=== PATIENT | male | born 1970 | race Caucasian/White ===

== ENCOUNTER 2020-08-15 18:46 | Emergency (ER) | payer MEDICAID, SELFPAY ==
[2020-08-15 19:00] VITALS: BP 143/86; PULSE 71; RESP 18; TEMP 36.9; O2SAT 99; BMI 27.7
--- NOTE | 2020-08-15 19:03 | HMH.EDUTC ---
[facility] [place] Clinical Impression: Exposure to COVID-19 virus, Viral syndrome Disposition: Home, Self-Care Condition on Discharge: Good Instructions: DI for Viral Syndrome Additional Instructions: Drink plenty of fluids. Take tylenol for pain or fever. Follow up with your regular doctor. GO TO THE ER FOR ANY WORSENING SYMPTOMS Referrals: PCP,No [Primary Care Provider] - Time of Disposition: 19:33 Medical Decision Making - Medical Records Medical records reviewed: No: I reviewed the patient's medical records. - Andrea Inquiry Pt receiving controlled substance: No Vital Signs: 08/15/20 19:00 08/15/20 19:35 Temperature 98.4 F 98.4 F Temperature Source Oral Pulse Rate 71 Pulse Rate [Right Brachial] 71 Respiratory Rate 18 18 Blood Pressure 143/86 H Blood Pressure [Right Arm] 143/86 H Blood Pressure Mean [Right Arm] 105 Blood Pressure Source [Right Arm] Automatic Cuff 02 Sat by Pulse Oximetry 99 Oxygen Delivery Method Room Air [facility] [place] H[place] - General Stated complaint: Wants COVID test,SOB,Diaarrhea,Abd Pain Time Seen by Provider: 08/15/20 19:03 - History of Present Illness Provider Complaint: He states that when he was on his way in his work, the temp check showed that his temp was 100.5. He has felt bad for 2 days, with diarrhea and a dry cough. - Related Data Allergies Allergy/AdvReac Type Severity Reaction Status Date / Time amoxicillin Allergy Verified 08/15/20 19:13 azithromycin Allergy Verified 08/15/20 19:13 Penicillins Allergy Verified 08/15/20 19:13 [facility] History - Hepatitis A Screen Attestation statement:: This patient has been screened for Hepatitis A risk factors. I have reviewed the patient's past medical history: Yes ROS Obtained: Yes All systems reviewed & no additional complaints - Constitutional Constitutional: Reports system reviewed and no additional complaints, except as docu - Eyes Eyes: Reports system reviewed and no additional complaints, except as docu - ENT Ears, Nose, Mouth, and Throat: Reports system reviewed and no additional complaints, except as docu - Cardiovascular Cardiovascular: Reports system reviewed and no additional complaints, except as docu - Respiratory Respiratory: Yes system reviewed and no additional complaints, except as docu - Gastrointestinal Gastrointestingal: Reports: system reviewed and no additional complaints, except as docu Physical Exam - General General appearance: alert, in no apparent distress - Head Head exam: atraumatic, normocephalic, normal inspection - Eye Eye exam: Present: normal appearance, PERRL, EOMI - ENT ENT exam: Present: normal exam, normal oropharynx, mucous membranes moist, TM's normal bilaterally, normal external ear exam - Neck Neck exam: Present: normal inspection, full ROM, trachea midline. Absent: meningismus, lymphadenopathy - Chest Chest inspection: Present: normal inspection, symmetric chest wall rise. Absent: tenderness - Respiratory Respiratory exam: Present: normal lung sounds bilaterally. Absent: respiratory distress - Cardiovascular Cardiovascular exam: Present: regular rate, normal rhythm. Absent: JVD - Abdominal Exam Abdominal exam: Present: soft, normal bowel sounds. Absent: distention, tenderness, guarding - Extremities Exam Extremities exam: Present: normal inspection, full ROM, normal capillary refill. Absent: calf tenderness - Back Exam Back exam: Present: normal inspection. Absent: tenderness - Neurological Exam Neurological exam: Present: alert, oriented X3 - Psychiatric Psychiatric exam: Present: normal affect, normal mood - Skin Skin exam: Present: warm, dry, intact, normal color - Lymphatic Lymphatic Findings: no adenopathy
[2020-08-15 19:35] VITALS: BP 143/86; PULSE 71; RESP 18; TEMP 36.9; O2SAT 99
== END 2020-08-15 19:38 | disposition home or self-care (01) ==
PROVIDERS: Emergency Provider Nurse Practitioner Family
DX: Z20.828 Contact with and (suspected) exposure to other viral communicable diseases (principal); B34.9 Viral infection, unspecified
CPT/HCPCS: 99201; U0003

== ENCOUNTER 2020-09-04 18:15 | Emergency (ER) | payer MEDICAID, SELFPAY ==
[2020-09-04 19:05] VITALS: BP 142/84; PULSE 90; RESP 21; TEMP 36.4; O2SAT 98; BMI 27.7
--- NOTE | 2020-09-04 19:28 | HMH.EDUTC ---
[facility] [place] Disposition Clinical Impression: COVID-19 virus test result unknown Disposition: Home, Self-Care Condition on Discharge: Good Instructions: Preventing the Spread of Coronavirus Discharge Instructions Additional Instructions: isolate until test known to be negative Referrals: PCP,No [Primary Care Provider] - Forms: Work/School Release Time of Disposition: 19:32 Medical Decision Making - Andrea Inquiry Pt receiving controlled substance: No Vital Signs: 09/04/20 19:05 Temperature 97.6 F Temperature Source Oral Pulse Rate [Right Brachial] 90 Respiratory Rate 21 Blood Pressure [Right Arm] 142/84 H Blood Pressure Mean [Right Arm] 103 Blood Pressure Source [Right Arm] Manual Cuff/ Doppler Blood Pressure Position [Right Arm] Sitting 02 Sat by Pulse Oximetry 98 Oxygen Delivery Method Room Air [facility] [place] HPI - General Chief complaint: Urgent Treatment Center Stated complaint: COVID Test;Fever Time Seen by Provider: 09/04/20 19:29 Mode of Arrival: Ambulatory Source of Information: Patient Limitations: No Limitations Description of Symptoms (Recalled from Triage Doc. by RN): PATIENT C/O FEVER TODAY AND DRY COUGH X 2 DAYS. WORK IS REQUESTING HE GET TESTED FOR COVID BEFORE HE CAN RETURN HEENT Symptoms (Recalled from RN notes): No Resp Symptoms (Recalled from RN notes): Yes Skin Symptoms (Recalled from RN notes): No MS Symptoms (Recalled from RN notes): No Functional Status (Recalled from RN notes): WNL - History of Present Illness Provider Complaint: 49 yr old male presnets for covid test.Pt states he had a fever at work and the sent him home, pt states he has a cough but no other symtpoms. - Related Data Allergies Allergy/AdvReac Type Severity Reaction Status Date / Time amoxicillin Allergy Verified 08/15/20 19:13 azithromycin Allergy Verified 08/15/20 19:13 Penicillins Allergy Verified 08/15/20 19:13 - Worker's Comp Is this a Worker's Comp case?: No [facility] History - Hepatitis A Screen Drug use history?: No High risk sexual behaviors?: No History of sexually transmitted infection?: No Currently employed?: No Childcare worker?: No Do you have indoor plumbing?: Yes Do you have electricity?: Yes Attestation statement:: This patient has been screened for Hepatitis A risk factors. I have reviewed the patient's past medical history: Yes Laterality Cases: Bilateral: Tonsillectomy - Social History Alcohol Intake: never Occupational Status: other ROS Obtained: Yes Systems reviewed as appropriate & no additional complaints - Constitutional Constitutional: Reports system reviewed and no additional complaints, except as docu, Denies fever(s) - Eyes Eyes: Reports system reviewed and no additional complaints, except as docu - ENT Ears, Nose, Mouth, and Throat: Reports system reviewed and no additional complaints, except as docu, Denies sore throat - Cardiovascular Cardiovascular: Reports system reviewed and no additional complaints, except as docu - Respiratory Respiratory: Yes system reviewed and no additional complaints, except as docu, Yes cough - Gastrointestinal Gastrointestingal: Reports: system reviewed and no additional complaints, except as docu - Genitourinary Male Genitourinary: Reports system reviewed and no additional complaints, except as docu - Musculoskeletal Musculoskeletal: Reports system reviewed and no additional complaints, except as docu - Integumentary/Breasts Skin/Breast: Reports system reviewed and no additional complaints, except as docu, Denies rash - Neurologic Neurologic: Reports system reviewed and no additional complaints, except as docu - Endocrine Endocrine: Reports system reviewed and no additional complaints, except as docu - Hematologic/Lymphatic Henatologic/Lymphatic: Reports system reviewed and no additional complaints, except as docu - Allergic/Immunologic Allergic/Immunologic: Reports system reviewed and no additional complaints, ex
[2020-09-04 19:31] VITALS: BP 142/84; PULSE 90; RESP 21; TEMP 36.4; O2SAT 98
[2020-09-06 12:55] LABS: Covid-19 Nasal PCR Sendout Lex Not Detected
== END 2020-09-04 19:41 | disposition home or self-care (01) ==
PROVIDERS: Emergency Provider Nurse Practitioner Family
DX: Z20.828 Contact with and (suspected) exposure to other viral communicable diseases (principal); R50.9 Fever, unspecified; R05 Cough; Z88.0 Allergy status to penicillin
CPT/HCPCS: 99201; U0004

== ENCOUNTER → 2020-10-14 17:50 | Outpatient (CLI) | payer BC, OTHER, SELFPAY ==
[2020-10-14 18:10] LABS: Basophils # 0.1 K/mm3 (0-0.2); Basophils % 0.8 % (0.1-2.0); Eosinophils # 0.1 K/mm3 (0.0-0.4); Eosinophils % 1.7 % (0.1-12.0); Hematocrit 47.5 % (42.0-52.0); Hemoglobin 16.4 g/dL (14.1-18.0); Lymphocytes # 1.7 K/mm3 (0.7-4.5); Lymphocytes % 30.7 % (10-50); Mean Corpuscular HGB Conc 34.4 g/dL (31.8-35.4); Mean Corpuscular Hemoglobin 32.1 pg (27.0-31.2); Mean Corpuscular Volume 93.1 fl (80-94); Mean Platelet Volume 7.1 fl (7.4-10.4); Monocytes # 0.2 K/mm3 (0.1-1.0); Monocytes % 3.6 % (1.7-9.3); Neutrophils # 3.6 K/mm3 (1.8-7.8); Neutrophils % 63.2 % (37.0-80.0); Platelet Count 284 K/mm3 (142-424); Red Cell Distribution Width 13.7 % (11.5-17.5); White Blood Count 5.6 K/mm3 (4.8-10.8)
[2020-10-14 18:18] LABS: Alanine Aminotransferase 30 U/L (12-78); Albumin Level 4.8 g/dl (3.5-5.0); Albumin/Globulin Ratio 1.4 (1.1-1.8); Alkaline Phosphatase 123 U/L (38-126); Anion Gap 13.5 mEq/L (5-15); Aspartate Amino Transferase 28 U/L (17-59); Bilirubin,Total 0.9 mg/dl (0.2-1.3); Blood Urea Nitrogen 10 mg/dl (9-20); Calcium 10.3 mg/dl (8.4-10.2); Carbon Dioxide 30 mmol/L (22.0-30.0); Chloride 101 mmol/L (98-107); Chol/HDL Ratio 5.2 (1-3.5); Cholesterol 263 mg/dl (140-200); Estimated Glomerular Filt Rate 89 ml/min (>60); GFR (African American) 108 ML/MIN (>60); Globulin 3.4 g/dL (1.3-3.2); Glucose 106 mg/dl (74-100); HDL Cholesterol 51 mg/dl (40-60); Potassium 4.5 mmoL/L (3.5-5.1); Sodium 140 mmol/L (136-145); Total Protein,Serum 8.2 g/dl (6.3-8.2); Triglycerides 147 mg/dl (30-150); VLDL Cholesterol 29 mg/dL (0-40)
[2020-10-14 18:28] LABS: Direct LDL Cholesterol 187.77 mg/dL (100-129)
[2020-10-14 18:30] LABS: Free T4 (Free Thyroxine) 1.05 ng/dl (0.78-2.19)
[2020-10-14 18:33] LABS: 25-OH Vitamin D, Total 15.8 ng/mL (30-100)
[2020-10-14 18:47] LABS: Prostate Specific Ag Screen 2.4 ng/ml (0.0-4.0); Thyroid Stimulating Hormone 1.54 uIU/mL (0.465-4.68)
== END ==
PROVIDERS: Visit Provider Nurse Practitioner Family
DX: Z00.00 Encounter for general adult medical examination without abnormal findings (principal); R53.83 Other fatigue; E55.9 Vitamin D deficiency, unspecified; Z79.899 Other long term (current) drug therapy; Z12.5 Encounter for screening for malignant neoplasm of prostate
CPT/HCPCS: 80053; 80061; 82306; 84439; 84443; 85025; G0103

== ENCOUNTER → 2020-10-31 12:33 | Outpatient (CLI) | payer BC, OTHER, SELFPAY ==
--- NOTE | 2020-10-31 12:33 | CT_ITS ---
PROCEDURE: CT ABDOMEN PELVIS WO CON CLINICAL INDICATION: Abd pain Blood in stool for 8 days. Elevate colon. Family hx of colon cancer. LLQ pain COMPARISON: No exams were available for comparison TECHNIQUE: Axial images obtained with sagittal and coronal reformats. All CT scans at the facility use one or more dose reduction, viz: automated exposure control, ma/kV adjustment per patient size (including targeted exams where dose is matched to indication, i.e. head), or iterative reconstruction technique. FINDINGS: LOWER THORAX: No acute finding ABDOMEN & PELVIS: The liver, gallbladder, spleen, adrenal glands, pancreas, and kidneys have an unremarkable appearance. No renal or ureteral calculi. No hydronephrosis. No intestinal obstruction or free air. There is a mild amount of retained colonic feces. Unremarkable appendix. There are few scattered small mesenteric lymph nodes which are nonspecific. There are few colonic diverticula but no evidence of diverticulitis. Prostate is enlarged at 4.8 cm with associated prominence of the seminal vesicles.. There is mild thickening of the urinary bladder wall. No acute bony findings. IMPRESSION: 1. No acute finding. 2. Mildly enlarged prostate and prominent seminal vesicles. 3. Mild thickening of the urinary bladder wall. This is nonspecific and may be due to nondistention versus cystitis or chronic outlet obstruction. Dictated by: Holger Rodriguez MD 11/01/2020 07:03 Holger Rodriguez MD in [place] 11/01/2020 07:03
== END ==
PROVIDERS: PCP Nurse Practitioner Family; Visit Provider Nurse Practitioner Family
DX: R10.9 Unspecified abdominal pain (principal)
CPT/HCPCS: 74176

== ENCOUNTER → 2020-12-03 09:34 | Outpatient (CLI) | payer BC, OTHER, SELFPAY ==
[2020-12-03 10:53] LABS: Coronavirus 19 IgG Antibody Negative (Negative); Coronavirus 19 IgM Antibody Negative (Negative)
== END ==
PROVIDERS: Visit Provider Internal Medicine Gastroenterology
DX: Z01.812 Encounter for preprocedural laboratory examination (principal)
CPT/HCPCS: 36415; 86328

== ENCOUNTER 2020-12-05 08:50 | Day surgery (SDC) | payer BC, OTHER, SELFPAY ==
[2020-11-29 10:58] VITALS: BMI 27.3
[2020-12-05 09:11] VITALS: BP 151/79; PULSE 73; RESP 18; TEMP 36.4; O2SAT 93
[2020-12-05 10:05] VITALS: O2SAT 97
--- NOTE | 2020-12-05 10:10 | P.PN_ITS ---
[facility] Anesthesia Checklist - Patient Identification Patient Identification: Arm Band - Structural Data Admitted From: Home Planned Operative Procedure/s: colonoscopy Consent for Planned Operative Procedure(s) Verified: Yes Verified Documents: Surgical Consent, History and Physical - NPO Status Verified Time NPO: 00:00 - Additional verifications Anesthesia Reactions: No - Airway Assessment C-Spine Mobility Assessed: Yes (mp2) TMJ Mobility Assessed: Yes Dentition: Good Dentition - Neurological Assessment Level of Consciousness: Awake, Alert - Anesthesia Plan Anesthesia Risk discussed: Yes Anesthesia Plan: Verified ASA Class: II Anesthesia Type: MAC [facility] History I have reviewed the patient's past medical history: Yes Medical History: Reports:: Anxiety, Depression, Hyperlipidemia, Hypertension, Migraine Denies:: Cancer, Diabetes Mellitus Type 1, Diabetes Mellitus Type 2, Internal Pacemaker, MRSA, Seizures *Have you ever received a pneumonia vaccine?: No *Have you received a flu vaccine this season?: No Anesthesia experience/problems:: nac Laterality Cases: Bilateral: Tonsillectomy Other Surgeries: Yes: Other. No: Pacemaker Amputation: No Fractures: No - *Social History Last grade of school completed: Advanced degree Smoking Status: Never smoker Alcohol Intake: current Alcohol Intake Frequency:: holidays/special occasions only Substance Use Type: denies use *Occupational Status:: other Housing: house Household Members: none *Travel in the last 8 weeks: None - Psychiatric History Pschychiatric History:: Reports:: Anxiety, Depression Family Hx:: Cancer, Hypertension, Hyperlipidemia, Other
--- NOTE | 2020-12-05 10:24 | HMH.PROC ---
[facility] Procedure Note Procedure Note:: Colonoscopy Procedure Report: Colonoscopy with cold snare polypectomy Endoscopist: Isaiah Lozano II, MD Referring physician: VICKI Pacheco Date of Procedure: December 05, 2020 Equipment: Olympus 190 variable stiffness pediatric colonoscope Sedation: MAC sedation Indication: Mr. Walker is a 50-year-old gentleman who is here for diagnostic colonoscopy. 6 weeks ago, he did pass bright red blood for 8 or 9 days. He also had some lower abdominal pain and discomfort and diarrhea. He was treated with antibiotics and dietary measures. He presently has had normal bowel function with soft stools. He does state that his father and paternal grandfather had colon cancer. His father was in his late 60s. The patient reports no weight loss. His recent CAT scan did show an enlarged prostate. Procedure: Prior to the procedure, a history and physical exam was performed, and patient's medications and allergies were reviewed. The risks, benefits and alternatives of the sedation and procedure were discussed with the patient. All questions were answered and informed consent was obtained. The patient was brought to the procedure room. Patient identification and proposed procedure were verified by the physician and the nurse. The patient was placed in a left lateral decubitus position and the scope was passed under direct vision. Throughout the procedure, the patient's blood pressure, pulse, and oxygen saturations were monitored continuously. The colonoscopy was accomplished without difficulty. The patient tolerated the procedure well. Findings: On digital rectal examination there was normal rectal tone. There were no external hemorrhoids. The prostate was 2-3+, smooth, soft, symmetric without nodules. The colonoscope was introduced through the anal canal to the rectum and advanced to the cecum. The ileocecal valve and appendiceal orifice were identified. The scope was advanced a short distance into the ileum which appeared grossly normal. The scope was then withdrawn into the colon. Within the cecum was a 3 to 4 mm polyp that was removed via cold snare polypectomy. The remaining cecum, ascending, transverse, descending, sigmoid and rectum were grossly normal. There were no other mucosal abnormalities identified. Upon retroflexion within the rectum there were grade 1-2 internal hemorrhoids.The preparation was excellent throughout with [place] Preparation Score of 9. The cecal time was 12 minutes. Impression: 1. Diminutive cecal colon polyp 2. Grade 1-2 internal hemorrhoids Plan: I will follow up the polyp histology and recommend repeat screening/surveillance colonoscopy again in 5 years based upon the patient's family history. I would encourage bulk fiber supplementation on a long-term daily maintenance basis.
[2020-12-05 10:26] VITALS: BP 110/62; PULSE 56; RESP 12; TEMP 36.2; O2SAT 93
[2020-12-05 10:36] VITALS: BP 95/67; PULSE 75; RESP 12; O2SAT 91
[2020-12-05 10:46] VITALS: BP 113/75; PULSE 78; RESP 16; O2SAT 94
[2020-12-05 10:56] VITALS: BP 113/75; PULSE 75; RESP 16; TEMP 36.2
== END 2020-12-05 11:05 | disposition home or self-care (01) ==
PROVIDERS: PCP Nurse Practitioner Family; Visit Provider Internal Medicine Gastroenterology
PROC: 0DJD8ZZ Inspection of Lower Intestinal Tract, Via Natural or Artificial Opening Endoscopic (ICD-10-PCS; CPT 45378; principal; 2020-12-05 10:00)
DX: K63.5 Polyp of colon (principal); K64.0 First degree hemorrhoids; Z80.0 Family history of malignant neoplasm of digestive organs; F41.9 Anxiety disorder, unspecified; F32.9 Major depressive disorder, single episode, unspecified; I10 Essential (primary) hypertension; E78.5 Hyperlipidemia, unspecified; G43.909 Migraine, unspecified, not intractable, without status migrainosus; Z80.9 Family history of malignant neoplasm, unspecified; Z82.49 Family history of ischemic heart disease and other diseases of the circulatory system; Z83.438 Family history of other disorder of lipoprotein metabolism and other lipidemia; Z79.899 Other long term (current) drug therapy
CPT/HCPCS: 45385

== ENCOUNTER → 2021-05-31 17:47 | Outpatient (CLI) | payer BC, SELFPAY ==
[2021-05-31 18:36] LABS: Basophils # 0.1 K/mm3 (0-0.2); Basophils % 0.9 % (0.1-2.0); Eosinophils # 0.1 K/mm3 (0.0-0.4); Hematocrit 49.3 % (42.0-52.0); Hemoglobin 16.5 g/dL (14.1-18.0); Lymphocytes # 2.2 K/mm3 (0.7-4.5); Lymphocytes % 37.2 % (10-50); Mean Corpuscular HGB Conc 33.4 g/dL (31.8-35.4); Mean Corpuscular Hemoglobin 32.1 pg (27.0-31.2); Mean Platelet Volume 8.5 fl (7.4-10.4); Monocytes # 0.3 K/mm3 (0.1-1.0); Monocytes % 4.9 % (1.7-9.3); Neutrophils # 3.3 K/mm3 (1.8-7.8); Neutrophils % 55.1 % (37.0-80.0); Platelet Count 308 K/mm3 (142-424); Red Blood Count 5.14 M/mm3 (4.60-6.20); Red Cell Distribution Width 13.2 % (11.5-17.5)
[2021-05-31 18:43] LABS: Alanine Aminotransferase 36 U/L (12-78); Albumin Level 4.5 g/dl (3.5-5.0); Albumin/Globulin Ratio 1.4 (1.1-1.8); Alkaline Phosphatase 109 U/L (38-126); Anion Gap 16.3 mEq/L (5-15); Aspartate Amino Transferase 29 U/L (17-59); Bilirubin,Total 0.8 mg/dl (0.2-1.3); Blood Urea Nitrogen 14 mg/dl (9-20); Calcium 9.8 mg/dl (8.4-10.2); Carbon Dioxide 27 mmol/L (22.0-30.0); Chloride 102 mmol/L (98-107); Chol/HDL Ratio 4.8 (1-3.5); Cholesterol 243 mg/dl (140-200); Estimated Glomerular Filt Rate 89 ml/min (>60); GFR (African American) 108 ML/MIN (>60); Globulin 3.3 g/dL (1.3-3.2); Glucose 122 mg/dl (74-100); HDL Cholesterol 51 mg/dl (40-60); Potassium 4.3 mmoL/L (3.5-5.1); Sodium 141 mmol/L (136-145); Total Protein,Serum 7.8 g/dl (6.3-8.2); Triglycerides 152 mg/dl (30-150); VLDL Cholesterol 30 mg/dL (0-40)
[2021-05-31 18:54] LABS: Direct LDL Cholesterol 163.07 mg/dL (100-129)
[2021-05-31 19:00] LABS: 25-OH Vitamin D, Total 28.8 ng/mL (30-100)
[2021-05-31 19:01] LABS: T4 (Thyroxine) 8.8 ug/dl (5.53-11.0)
[2021-05-31 19:14] LABS: Thyroid Stimulating Hormone 1.19 uIU/mL (0.465-4.68)
== END ==
PROVIDERS: Visit Provider Nurse Practitioner Family
DX: I10 Essential (primary) hypertension (principal)
CPT/HCPCS: 80053; 80061; 82306; 84436; 84443; 85025

== ENCOUNTER 2021-06-08 09:22 | Emergency (ER) | payer BC, SELFPAY ==
[2021-06-08 09:22] VITALS: BP 136/108; PULSE 96; RESP 16; TEMP 36.8; O2SAT 98; BMI 28.0
--- NOTE | 2021-06-08 09:24 | XR_ITS ---
PROCEDURE: XR CHEST PORTABLE CLINICAL HISTORY: chest pain COMPARISON: No exams were available for comparison FINDINGS: The cardiomediastinal silhouette and pulmonary vascularity are within normal limits. There are minimal atelectatic changes in both lung bases. Upper lobes are clear side from a granuloma in the left upper lobe. No acute bony abnormalities. IMPRESSION: Mild atelectatic change in both lower lobes. Dictated by: Holger Rodriguez MD 06/08/2021 10:11 Holger Rodriguez MD in [place] 06/08/2021 10:11
--- NOTE | 2021-06-08 09:25 | HMH.EDCP ---
ED Disposition Clinical Impression: Viral syndrome Disposition: Home, Self-Care Condition on Discharge: Good Instructions: DI for Viral Syndrome, DI for COVID-19 (Suspected or Confirmed ) Additional Instructions: You have been evaluated for cough, chills, chest tightness. Most concerning for viral syndrome. Please continue to monitor your symptoms at home. It would be a good idea to to have another Covid test in 1 to 2 days. Follow-up with your primary care doctor. Dr. Enciso, cardiology, can see you in clinic next Saturday or Saturday at 11 AM. Reports to [facility] and tell them you have an appointment. Return sooner for any new or worsening symptoms. Referrals: Medardo South MD [Staff Physician] - Time of Disposition: 12:48 - Critical Care Critical Care Time: No Attestation: On , the high probability of a clinically significant, sudden or life threatening deterioration of the following system(s) required my full and direct attention, intervention and personal management. The time I documented below is in addition to time spent performing reported procedures but includes the following listed in this critical care notation. Medical Decision Making - Medical Records Medical records reviewed: Yes: I reviewed the patient's medical records. - Andrea Inquiry Pt receiving controlled substance: No Vital Signs: 06/08/21 09:22 06/08/21 10:00 06/08/21 10:30 Temperature 98.2 F Temperature Source Oral Pulse Rate 85 74 Pulse Rate [Radial] 96 H Respiratory Rate 16 19 22 Blood Pressure 135/93 H Blood Pressure [Right Arm] 136/108 H Blood Pressure Mean 106 Blood Pressure Mean [Right Arm] 117 Blood Pressure Position [Right Arm] Sitting 02 Sat by Pulse Oximetry 98 95 96 Oxygen Delivery Method Room Air 06/08/21 11:00 Temperature Temperature Source Pulse Rate 73 Pulse Rate [Radial] Respiratory Rate 22 Blood Pressure 142/105 H Blood Pressure [Right Arm] Blood Pressure Mean 111 Blood Pressure Mean [Right Arm] Blood Pressure Position [Right Arm] 02 Sat by Pulse Oximetry 96 Oxygen Delivery Method - Lab Data Lab Results 06/08/21 09:25: SARS-CoV-2 (PCR) Not detected, Influenza A Untype (PCR) Not detected, Influenza Type B (PCR) Not detected 06/08/21 09:27: WBC 4.7 L, RBC 5.07, Hgb 16.1, Hct 48.1, MCV 94.9 H, MCH 31.8 H, MCHC 33.5, RDW 13.2, Plt Count 264, MPV 8.2, Neut % (Auto) 53.7, Lymph % (Auto) 36.9, [place] % (Auto) 6.8, Eos % (Auto) 1.8, Baso % (Auto) 0.8, Neut # (Auto) 2.5, Lymph # (Auto) 1.8, [place] # (Auto) 0.3, Eos # (Auto) 0.1, Baso # (Auto) 0.0 06/08/21 09:27: Sodium 144, Potassium 4.0, Chloride 106, Carbon Dioxide 29, Anion Gap 13.0, BUN 13, Creatinine 1.00, Estimated GFR 79, Est GFR ( Amer) 96, Glucose 102 H, Calcium 9.9, Troponin I < 0.01 06/08/21 11:52: Troponin I < 0.01 Result diagrams: 06/08/21 09:27 06/08/21 09:27 Orders (Tests/Meds): ED MEDICATIONS Discontinued Medications Generic Name Dose Route Start Last Admin Trade Name Freq PRN Reason Stop Dose Admin Aspirin 324 mg 06/08/21 09:23 06/08/21 09:41 Aspirin 81mg Chewable Tablet PO 06/08/21 09:24 324 mg ONCE ONE Administration ORDERS Category Date Time Status Troponin I Q3H Lab 06/08/21 15:30 Ordered - DIVYA Score for Non-Stemi Age of Patient: 50-59 years old Heart Rate: 70-89 bpm Systolic Blood Pressure: 120-139 mmhg Serum Creatinine: 0.40-0.79 mg/dl CHF [place] Class: I-No CHF Other Risk Factors: None Non-Stemi Risk Score: 88 Medical Decision Narrative: In summary this is a 50-year-old male with history of hypertension presenting to the emergency department for chills, body aches, chest tightness. Patient clinically stable on arrival. Vital signs within normal limits. He does have diastolic hypertension at 105. Patient is concerned for COVID-19. Also concern for pneumonia, bronchitis, CAD. Will obtain Covid test, chest x-ray, EKG, CBC, BMP, tro
[2021-06-08 09:29] LABS: Coronavirus 19, PCR Not Detected (NotDetected); Influenza A, PCR Not Detected (NotDetected); Influenza B, PCR Not Detected (NotDetected)
[2021-06-08 09:36] LABS: Basophils % 0.8 % (0.1-2.0); Eosinophils # 0.1 K/mm3 (0.0-0.4); Eosinophils % 1.8 % (0.1-12.0); Hematocrit 48.1 % (42.0-52.0); Hemoglobin 16.1 g/dL (14.1-18.0); Lymphocytes # 1.8 K/mm3 (0.7-4.5); Lymphocytes % 36.9 % (10-50); Mean Corpuscular HGB Conc 33.5 g/dL (31.8-35.4); Mean Corpuscular Hemoglobin 31.8 pg (27.0-31.2); Mean Corpuscular Volume 94.9 fl (80-94); Mean Platelet Volume 8.2 fl (7.4-10.4); Monocytes # 0.3 K/mm3 (0.1-1.0); Monocytes % 6.8 % (1.7-9.3); Neutrophils # 2.5 K/mm3 (1.8-7.8); Neutrophils % 53.7 % (37.0-80.0); Platelet Count 264 K/mm3 (142-424); Red Blood Count 5.07 M/mm3 (4.60-6.20); Red Cell Distribution Width 13.2 % (11.5-17.5); White Blood Count 4.7 K/mm3 (4.8-10.8)
[2021-06-08 09:42] LABS: Chloride 106 mmol/L (98-107)
[2021-06-08 09:43] LABS: Sodium 144 mmol/L (136-145)
--- NOTE | 2021-06-08 09:44 | PC.NURSE ---
notified rad of orders on pt, spoke with Deandre
[2021-06-08 09:46] LABS: Blood Urea Nitrogen 13 mg/dl (9-20); Calcium 9.9 mg/dl (8.4-10.2); Carbon Dioxide 29 mmol/L (22.0-30.0); Estimated Glomerular Filt Rate 79 ml/min (>60); GFR (African American) 96 ML/MIN (>60); Glucose 102 mg/dl (74-100)
[2021-06-08 09:59] LABS: Troponin I < 0.01 ng/ml (0.00-0.034)
[2021-06-08 10:00] VITALS: PULSE 85; RESP 19; O2SAT 95
[2021-06-08 10:30] VITALS: BP 135/93; PULSE 74; RESP 22; O2SAT 96
[2021-06-08 11:00] VITALS: BP 142/105; PULSE 73; RESP 22; O2SAT 96
--- NOTE | 2021-06-08 12:06 | ECG_ITS ---
APPROVED REPORT Exam: Resting ECG HR:78 bpm ECG Measurements Heart Rate 78 AXES ND 166 P 35 QRSd 88 QRS 0 QT 362 T 23 QTc 412 Conclusion Sinus rhythm with occasional premature ventricular complexes Nonspecific T wave abnormality Abnormal ECG Electronically signed by : Jack Bergman MD 06/09/2021 10:54:33
[2021-06-08 12:35] LABS: Troponin I < 0.01 ng/ml (0.00-0.034)
[2021-06-08 12:57] VITALS: BP 134/97; PULSE 87; RESP 16; TEMP 37.2; O2SAT 94
== END 2021-06-08 12:59 | disposition home or self-care (01) ==
PROVIDERS: Emergency Provider Emergency Medicine; PCP Nurse Practitioner Family
DX: B34.9 Viral infection, unspecified (principal); Z20.822 Contact with and (suspected) exposure to COVID-19; F41.8 Other specified anxiety disorders; I10 Essential (primary) hypertension; E78.5 Hyperlipidemia, unspecified
CPT/HCPCS: 71045; 80048; 84484; 85025; 93005; 99284; U0003

== ENCOUNTER → 2021-06-20 06:40 | Outpatient (CLI) | payer BC, SELFPAY ==
--- NOTE | 2021-06-20 06:41 | NM_ITS ---
APPROVED REPORT Exam: Nuclear Stress Test Indication: Chest pain, SOB, Palpitations, Fatigue, HTN, High cholesterol, Family history Patient Location: Outpatient Stress Tech: Tanisha Tomlin DC Tech:Carol Chong, ARRT, RT (R)(N) Ht: 5 ft 9 in Wt: 190 lbs HR: 77 bpm BP: 143/98 mmHg BSA: 2.02 m2 BMI: 28.0 History: Chest pain, SOB, Palpitations, Fatigue, HTN, High cholesterol, Family history Procedure: Patient exercised on Lopez protocol 9:34 minutes and sec, resting heart rate 77 bpm, resting blood pressure 143/98 mmHg, with exercise maximum heart rate achived was 160 bpm which is 94 % of the maximum predicted heart rate and blood pressure was 174/81 mmHg. Test was stopped due to SOA. Patient has good exercise capacity, achieved 10.1 METs of workload on treadmill, the blood pressure response to exercise was Adequate. Electrocardiogram Resting electrocardiogram showed sinus rhythm, with exercise there is less than 1.[address] segment depression noted from the baseline EKG. The EKG portion of the exercise Myoview is negative for ischemia. Cardiac Stress and Resting SPECT Images: Cardiac Stress and Resting SPECT images were obtained using technetium 99m Myoview 32.1 mCi stress and 10.79 mCi at rest. Gated SPECT for analysis of segmental wall motion and calculation of the ejection fraction also done, prone images were also obtained. Cardiac stress and resting SPECT images show uniform myocardial activity without segmental perfusion abnormality, computer derived ejection fraction is 52% with no regional wall motion abnormality, right ventricle is normal size and contractility. Conclusion: 1. The EKG portion of the exercise Myoview is negative for ischemia, patient has good exercise capacity achieved 10.1 METs of workload on treadmill, the blood pressure response to exercise was adequate, there was no exercise-induced chest discomfort. 2. No scintigraphic evidence of reversible ischemia seen, computer derived ejection fraction is 52% with no regional wall motion abnormality, right ventricle is normal size and contractility. 3. Normal exercise Myoview study. Electronically signed by : Callum Walker MD 06/20/2021 21:34:12
--- NOTE | 2021-06-20 06:41 | CA_ITS ---
APPROVED REPORT EXAM: Comprehensive 2D, Doppler, and color-flow Echocardiogram Optical Fabricator: Jessica Lutz RVT Ht: 5 ft 9 in Wt: 189lbs BSA: 2.02 BP: 158/92 mmHg Indications: CP,HTN,ABN EKG,PALPS,SOA,HLD 2D Dimensions LVOT 2.34 cm (M/F) 1.5-2.5 LA Volume 28.30 mL LA Volume Index 14.07 mL/m2 (M/F) 16-34 M-Mode Dimensions RVDd 3.29 cm (0.9-2.6) LA Diam 3.84 cm (1.9-4.0) LVDd 4.22 cm (3.5-5.7) Ao Diam 2.98 cm (2.0-3.7) LVDs 2.61 cm (3.5-5.7) IVSd 1.47 cm (0.6-1.1) PWd 0.57 cm (0.6-1.1) EF (Teich) 68.80% FS 38.20% EDV (Teich) 79.50 mL TAPSE 2.06 (<1.7) ESV (Teich) 24.80 mL LV Diastology E Decel Time 257.00 (160-240 msec) E/A Ratio 0.8 MED E' 7.60 (< 7 cm/sec) E'/MED E' Ratio 7.78 (>14) LAT E' 10.40 (<10 cm/sec) E/LAT E' Ratio 5.68 (>14) Aortic Valve AO Peak GR. 4.10 mmHg Mitral Valve MV E Max Jeremy. 59.00 (40-130 cm/s) MV A Velocity 75.00 (40-130 cm/s) E/A Ratio 0.79 MV Decel. Time 257.00 (160-240 ms) MV PHT 75.00 ms Pulmonary Valve PV Peak Velocity 65.00 (50-150 cm/s) Tricuspid Valve TR P. Velocity 258.00 cm/s RAP Estimate 10.00 mmHg RVSP 36.70 mmHg Left Ventricle Left atrium is mildly enlarged, left ventricle is normal size, mild concentric left ventricular hypertrophy, visually estimated ejection fraction 55% with no regional wall motion abnormality, grade 1 diastolic dysfunction seen without tissue Doppler evidence of raise left atrial pressure. Right Ventricle Right atrium and right ventricle are mildly enlarged with normal contractility. Aortic Valve Aortic valve is minimally thickened and fibrosed, there is no aortic stenosis or aortic insufficiency. Mitral Valve Mitral valve is grossly normal, there is trace mitral regurgitation. Tricuspid Valve Tricuspid valve grossly normal, there is trace tricuspid regurgitation, calculated right ventricular systolic pressure 37 mmHg. Pulmonic Valve Pulmonic valve is poorly visualized. Great Vessels Aortic root is normal size. Inferior vena cava is mildly enlarged with normal inspiratory collapse. Pericardium No significant pericardial effusion noted Conclusion 1. Mild biatrial enlargement, normal left ventricular size, mild concentric left ventricular hypertrophy, visually estimated ejection fraction 55% with no regional wall motion abnormality, grade 1 diastolic dysfunction seen without tissue Doppler evidence of raise left atrial pressure. 2. Mildly enlarged right ventricle with normal contractility. 3. Trace mitral and tricuspid regurgitation, calculated right ventricular systolic pressure 37 mmHg. 4. No significant pericardial effusion noted, inferior vena cava is mildly enlarged with normal inspiratory collapse. Electronically signed by : Callum Walker MD 06/20/2021 18:21:27
--- NOTE | 2021-06-20 06:41 | CA_ITS ---
APPROVED REPORT Billet Grinder: Jessica Lutz RVT Study Quality: Good Indications: HTN Risk Factors Hypertension Hyperlipidemia Diabetes Renal Artery Doppler Origin (R) 128.5/ cm/sec Proximal (R) 110.5/ cm/sec Mid (R) 112.9/ cm/sec Distal (R) 139.3/ cm/sec Renal Aorta Ratio (R) 1.34 Segmental A. (R) 58.2/26.5 cm/sec RI: 0.54 Segmental A. Sup (R) 33.5/17.6 cm/sec Segmental A. Mid (R) 58.2/26.5 cm/sec Segmental A. Inf (R) 45.9/28.2 cm/sec Origin (L) 102.8/ cm/sec Proximal (L) 105.4/ cm/sec Mid (L) 69.4/ cm/sec Distal (L) 93.8/ cm/sec Renal Aorta Ratio (L) 1.01 Segmental A. (L) 45.9/18.8 cm/sec RI: 0.59 Segmental A. Sup (L) 39.7/17.7 cm/sec Segmental A. Mid (L) 45.9/18.8 cm/sec Segmental A. Inf (L) 38.6/17.7 cm/sec Renal Measurements Kidney Size (R) 12.1x7.7 cm Cortical Thickness (R) 1.9 cm Kidney Size (L) 12.3x5.7 cm Cortical Thickness (L) 2.0 cm Findings Study suggests no evidence of stenosis of the bilateral renal arteries. Conclusion Study suggests no evidence of stenosis of the bilateral renal arteries. Electronically signed by : Holger Rodriguez MD 06/20/2021 17:30:03
--- NOTE | 2021-06-20 08:30 | HMH.ITSHM ---
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 []METOPROLOL LISINOPRIL ASA AMLODIPINE VITAMIN D3
== END ==
PROVIDERS: PCP Nurse Practitioner Family; Visit Provider Nurse Practitioner Family
DX: R06.00 Dyspnea, unspecified (principal); R07.9 Chest pain, unspecified; I10 Essential (primary) hypertension; R94.31 Abnormal electrocardiogram [ECG] [EKG]
CPT/HCPCS: 78452; 93017; 93306; 93976; A9502

== ENCOUNTER → 2021-07-31 16:19 | Outpatient (CLI) | payer BC, SELFPAY | PROVIDERS: PCP Nurse Practitioner Family; Visit Provider Nurse Practitioner | DX: Z20.822 Contact with and (suspected) exposure to COVID-19 (principal); U07.1 COVID-19 | CPT/HCPCS: C9803; U0003; U0005 ==

== ENCOUNTER → 2021-10-17 06:11 | Outpatient (CLI) | payer BC, SELFPAY | PROVIDERS: PCP Nurse Practitioner Family; Visit Provider Emergency Medicine | DX: U07.1 COVID-19 (principal) | CPT/HCPCS: C9803; U0003; U0005 ==

== ENCOUNTER 2022-02-08 17:21 | Emergency (ER) | payer OTHER, SELFPAY ==
--- NOTE | 2022-02-08 18:00 | XR_ITS ---
PROCEDURE INFORMATION: Exam: XR Right Shoulder Exam date and time: 02/08/2022 5:56 PM Age: 51 years old Clinical indication: Injury or trauma; Other: [place] fell on shoulder; Work related; Crushing; Right; Additional info: Injury at work, gate fell on patients shoulder, PT stated pain in joint and clavicle, injury happened at 3; 30pm today TECHNIQUE: Imaging protocol: XR Right shoulder. Views: 2 or more views. COMPARISON: CR XR CHEST PORTABLE 06/08/2021 9:59 AM FINDINGS: Bones/joints: There is no evidence of acute fracture. There is no evidence of joint malalignment or dislocation. Soft tissues: No focal soft tissue swelling. IMPRESSION: 1. No evidence of acute fracture. 2. No evidence of acute dislocation.
--- NOTE | 2022-02-08 18:05 | PC.NURSE ---
Notified radiology regarding patient xray
[2022-02-08 18:33] VITALS: BP 163/119; PULSE 63; RESP 18; TEMP 36.8; O2SAT 96; BMI 28.8
--- NOTE | 2022-02-08 18:50 | HMH.EDUTC ---
[facility] [place] Disposition Clinical Impression: Shoulder pain, right Qualifiers: Chronicity: acute Qualified Code(s): M25.511 - Pain in right shoulder Disposition: Home, Self-Care Condition on Discharge: Good Instructions: DI for Shoulder Pain Additional Instructions: sprain- rest Ice with cold pack for 20 minutes remove may repeat for comfort every hour Ibuprofen every 6 hours as needed for pain or inflammation. If needs something more you can take Tylenol every 4 hours as needed as long as her primary care has told he was okayed for you to take both. Follow-up immediately if new or worsening symptoms or no noticeable improvement over the next 3-5 days. follow up with pcp to be released off restrictions Referrals: Donnie Mcgee APRN [Primary Care Provider] - Forms: Work/School Release Time of Disposition: 19:07 Medical Decision Making - Andrea Inquiry Pt receiving controlled substance: No Vital Signs: 02/08/22 18:33 Temperature 98.2 F Temperature Source Oral Pulse Rate [Radial] 63 Respiratory Rate 18 Blood Pressure [Right Arm] 163/119 H Blood Pressure Mean [Right Arm] 133 02 Sat by Pulse Oximetry 96 [facility] [place] HPI - General Chief complaint: Urgent Treatment Center Stated complaint: wc 02/08/22@1530 R arm pain Time Seen by Provider: 02/08/22 18:50 Mode of Arrival: Ambulatory Source of Information: Patient Limitations: No Limitations Description of Symptoms (Recalled from Triage Doc. by RN): injury today at work. right arm and shoulder. safety gate hit him. ibuprofen at 1600 today HEENT Symptoms (Recalled from RN notes): No Resp Symptoms (Recalled from RN notes): No Skin Symptoms (Recalled from RN notes): No MS Symptoms (Recalled from RN notes): Yes Functional Status (Recalled from RN notes): wnl - History of Present Illness Provider Complaint: 51 yr old male pressents for rt shoulder pain pt states he had a injury today at work right arm and shoulder. safety gate hit him. having pain in joint and radiating in arm. brusises to forearm - Related Data Home Medications Medication Instructions Recorded Confirmed Cholecalciferol (Vitamin D3) 1,250 mcg PO WEEKLY 11/29/20 06/12/21 [Vitamin D3 50,000 unit Cap] Cholecalciferol (Vitamin D3) 50 mcg PO DAILY 11/29/20 06/12/21 [Vitamin D3] aspirin 81 mg tablet,delayed 81 mg PO DAILY 06/12/21 06/12/21 release Previous Rx's Medication Instructions Recorded lisinopril 20 mg tablet 20 mg PO DAILY #30 tab 05/31/21 amlodipine 10 mg tablet 10 mg PO DAILY #30 tab 06/12/21 metoprolol succinate 25 mg 25 mg PO DAILY #30 tab 06/12/21 tablet,extended release 24 hr Allergies Allergy/AdvReac Type Severity Reaction Status Date / Time amoxicillin Allergy Verified 02/08/22 18:36 azithromycin Allergy Verified 02/08/22 18:36 Penicillins Allergy Verified 02/08/22 18:36 - Worker's Comp Is this a Worker's Comp case?: Yes [facility] History - Hepatitis A Screen Attestation statement:: This patient has been screened for Hepatitis A risk factors. I have reviewed the patient's past medical history: Yes Medical History: Reports:: Anxiety, Depression, Hyperlipidemia, Hypertension, Migraine Denies:: Cancer, Diabetes Mellitus Type 1, Diabetes Mellitus Type 2, Internal Pacemaker, MRSA, Seizures Laterality Cases: Bilateral: Tonsillectomy Other Surgeries: Yes: Other. No: Pacemaker Amputation: No Fractures: No Comment: surgery on both feet. Vasectomy - Social History Smoking Status: Never smoker Alcohol Intake: current Alcohol Intake Frequency:: a few times a month Substance Use Type: denies use Occupational Status: other Housing: house Household Members: none - Psychiatric History Pschychiatric History:: Reports:: Anxiety, Depression Family Hx:: Cancer, Diabetes, Heart Attack, Stroke, Hypertension Comment: Migraines ROS Obtained: Yes Systems reviewed as appropriate & no additional complaints - Constitutional Constitutional: Reports system reviewed a
[2022-02-08 19:18] VITALS: BP 145/95; PULSE 63; RESP 18; TEMP 36.8
== END 2022-02-08 19:19 | disposition home or self-care (01) ==
PROVIDERS: Emergency Provider Nurse Practitioner Family; PCP Nurse Practitioner Family
DX: M25.511 Pain in right shoulder (principal); W20.8XXA Other cause of strike by thrown, projected or falling object, initial encounter; Y99.0 Civilian activity done for income or pay; Z88.0 Allergy status to penicillin; Z88.1 Allergy status to other antibiotic agents
CPT/HCPCS: 73030; 99212; G0463

== ENCOUNTER 2022-06-07 09:00 | Outpatient (RCR) | payer OTHER, SELFPAY ==
--- NOTE | 2022-05-28 09:48 | HMH.PTOPEV ---
PT Outpatient Evaluation Rehab PT Outpatient Evaluation Start: 05/28/22 08:56 Freq: Status: Active Protocol: Document 05/28/22 09:26 VLAD (Rec: 05/28/22 09:48 PHOYOUNG [id number]) E-signed By Kaushal Comer, PT Outpatient Therapy Subjective History Subjective History Pt is 51 yowm who presents with c/o pain in low back x 6- 8 mos with insidious onset of symptoms. He reports intermittent numbness and tingling in the LE B, R worse than L. He reports pain is worse with prolonged standing and sitting. He works at a local [employer] and is standing for most of a 12hr shift, which increases his pain. Prescribed steroids and naproxen do not appear to be decreasing his symptoms much. Chief Complaint Pain,Stiff,Paresthesia Symptom Type Ache,Sharp,Burning,Numbness, Tingling,Shooting Symptoms Relieved By Ice Symptoms Aggravated By Sitting,Standing Prior Functional Limitations None Current Functional Limitations Standing,Sitting,Bending/ Stooping Symptom Description Constant but Variable Level of pain today (0-10) 4 Pain scale - at its worst (0-10) 8 Lumbopelvic Eval Palapation tenderness bilateral lumbar spinal tenderness Yes paraspinal tenderness Yes: worse R Accessory Movement L3 bilateral L4 bilateral L5 bilateral Range of Motion Lumbar Spine Active Flexion Range of 0-60 Motion (degrees) Lumbar Spine Active Extension Range of 0-20 Motion (degrees) Left Lumbar Spine Lateral Flexion Active 0-20 Range of Motion (degrees) Right Lumbar Spine Lateral Flexion 0-20 Active Range of Motion (degrees) Lumbar Spine ROM Limitations Pain Manual Muscle Test Bilateral Knee Extension Strength Grade 5 Normal Knee Flexion Strength Grade 5 Normal Hip Flexion Strength Grade 5 Normal Hip Abduction Strength Grade 5 Normal Hip Adduction Strength Grade 5 Normal Extensor Hallucis Longus Strength Grade 5 Normal Ankle Dorsiflexion Strength Grade 5 Normal Gastronemius/Soleus Strength Grade 5 Normal Altered Sensation Right LE Dermatome Level L3,L4 Special Tests Forward Bending Test- Standing Positive Left,Positive Right Hip Scouring (Quadrant) Test Negative Left,
== END 2022-06-07 09:05 | disposition home or self-care (01) ==
LOC: PT 09:00
PROVIDERS: PCP Nurse Practitioner Family; Visit Provider Nurse Practitioner Family
DX: M54.50 Low back pain, unspecified (principal)
CPT/HCPCS: 97010; 97012; 97014; 97110; 97163; G0283

== ENCOUNTER 2022-08-10 15:14 | Emergency (ER) | payer BC, SELFPAY ==
[2022-08-10 15:15] VITALS: BP 160/116; PULSE 79; RESP 18; TEMP 36.7; O2SAT 94; BMI 28.3
--- NOTE | 2022-08-10 15:42 | PC.NURSE ---
johnna lens applied to R eye per ER order with normal saline
[2022-08-10 16:00] VITALS: BP 185/126; PULSE 83; RESP 20; O2SAT 96
--- NOTE | 2022-08-10 16:00 | HMH.EDGENADL ---
Discharge Plan Disposition Patient Disposition: Home, Self-Care Condition: Good Prescriptions Prescriptions: No Action aspirin 81 mg tablet,delayed release (DR/EC) 81 mg PO DAILY hydrochlorothiazide 25 mg tablet 25 mg PO DAILY Qty: 30 2RF naproxen 500 mg tablet 500 mg PO BID Qty: 30 0RF amlodipine 10 mg tablet 10 mg PO DAILY Qty: 30 2RF cefdinir 300 mg capsule 300 mg PO BID 10 Days Qty: 20 0RF olanzapine [Zyprexa] 10 mg tablet 10 mg PO DAILY Qty: 30 1RF hydroxyzine pamoate [Vistaril] 25 mg capsule 25 mg PO TID PRN (Reason: itching) Qty: 60 0RF lisinopril 20 mg tablet 20 mg PO DAILY Qty: 30 2RF Referrals Follow up/Referrals: Donnie Mcgee APRN [Primary Care Provider] - See instructions Activity Restrictions/Add. Instructions Additional Instructions/Restrictions: Please use the erythromycin ointment that we have given you twice daily for the next 10 days at least. Recommend that you follow-up with an clinic administrator or equipment operator wage hand to ensure that your symptoms are improving. Clinical Impressions Clinical Impression: Abrasion, corneal Instructions Patient Instructions: DI for Corneal Abrasion Discharge ED Provider: Juan Santos General Adult HPI General Chief complaint: Eye Problems Stated complaint: [id number]@1430 fb in R eye Time Seen by Provider: 08/10/22 15:14 History of Present Illness HPI narrative: Patient is a 51-year-old male who presents with concern for a foreign body in his right eye. He says that he was using spray foam earlier today and he feels like he got some spray foam in his right eye. He says that he tried to wash his eye out but he still feels like there is something stuck in it. He says his eye has been watering nonstop since then. Denies any injuries to his left eye. He says that his vision is little blurry in that eye. He says that it is painful every time he blinks. Related Data Home Medications Medication Instructions Recorded Confirmed aspirin 81 mg tablet,delayed 81 mg PO DAILY 06/12/21 06/01/22 release Previous Rx's Medication Instructions Recorded lisinopril 20 mg tablet 20 mg PO DAILY #30 tabs 04/18/22 hydrochlorothiazide 25 mg tablet 25 mg PO DAILY #30 tabs 05/04/22 naproxen 500 mg tablet 500 mg PO BID #30 tabs 05/04/22 amlodipine 10 mg tablet 10 mg PO DAILY #30 tabs 06/01/22 cefdinir 300 mg capsule 300 mg PO BID 10 days #20 caps 06/01/22 hydroxyzine pamoate 25 mg capsule 25 mg PO TID PRN itching #60 caps 06/01/22 (Vistaril) olanzapine 10 mg tablet (Zyprexa) 10 mg PO DAILY #30 tabs 06/01/22 Allergies Allergy/AdvReac Type Severity Reaction Status Date / Time amoxicillin Allergy Verified 06/01/22 09:45 azithromycin Allergy Verified 06/01/22 09:45 Penicillins Allergy Verified 06/01/22 09:45 [facility] Medical History (Updated 08/10/22 @ 18:27 by Juan Santos MD) Abnormal electrocardiography Chest pain Daytime somnolence Dyspnea Family history of heart disease HLD (hyperlipidemia) HTN (hypertension) Palpitations Restless sleeper Social History Smoking Status: Never smoker alcohol intake: current substance use type: denies use current occupational status: other Travel in the last 8 weeks: None household members: none housing: house 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
--- NOTE | 2022-08-10 16:22 | PC.NURSE ---
pt up to restroom
[2022-08-10 18:35] VITALS: BP 162/110; PULSE 84; RESP 18; TEMP 36.7; O2SAT 99
== END 2022-08-10 18:35 | disposition home or self-care (01) ==
PROVIDERS: Emergency Provider Student in an Organized Health Care Education/Training Program; PCP Nurse Practitioner Family
DX: S05.00XA Injury of conjunctiva and corneal abrasion without foreign body, unspecified eye, initial encounter (principal); Z79.82 Long term (current) use of aspirin; Z88.0 Allergy status to penicillin; Z88.1 Allergy status to other antibiotic agents; E78.5 Hyperlipidemia, unspecified; I10 Essential (primary) hypertension; R00.2 Palpitations
CPT/HCPCS: 99283

== ENCOUNTER → 2023-07-09 11:26 | Outpatient (CLI) | payer BC, SELFPAY ==
[2023-07-09 12:20] LABS: Basophils # 0.1 K/mm3 (0-0.2); Basophils % 0.8 % (0.1-2.0); Eosinophils # 0.1 K/mm3 (0.0-0.4); Eosinophils % 1.8 % (0.1-12.0); Hematocrit 44.4 % (42.0-52.0); Hemoglobin 15.6 g/dL (14.1-18.0); Lymphocytes # 2.7 K/mm3 (0.7-4.5); Lymphocytes % 40.6 % (10-50); Mean Corpuscular HGB Conc 35.2 g/dL (31.8-35.4); Mean Corpuscular Hemoglobin 33.8 pg (27.0-31.2); Mean Platelet Volume 7.4 fl (7.4-10.4); Monocytes # 0.3 K/mm3 (0.1-1.0); Neutrophils # 3.5 K/mm3 (1.8-7.8); Neutrophils % 51.7 % (37.0-80.0); Platelet Count 218 K/mm3 (142-424); Red Blood Count 4.63 M/mm3 (4.60-6.20); Red Cell Distribution Width 13.9 % (11.5-17.5); White Blood Count 6.7 K/mm3 (4.8-10.8)
[2023-07-09 13:33] LABS: Alanine Aminotransferase 32 U/L (12-78); Albumin Level 4.2 g/dl (3.5-5.0); Alkaline Phosphatase 95 U/L (38-126); Anion Gap 10.9 mEq/L (5-15); Aspartate Amino Transferase 36 U/L (17-59); Bilirubin,Direct 0.1 mg/dl (0.0-0.4); Bilirubin,Indirect 0.3 mg/dL (0.0-0.9); Bilirubin,Total 0.4 mg/dl (0.2-1.3); Bilirubin,Unconjugated 0.3 mg/dL (0.0-1.1); Blood Urea Nitrogen 17 mg/dl (9-20); Calcium 9.5 mg/dl (8.4-10.2); Carbon Dioxide 29 mmol/L (22.0-30.0); Chloride 103 mmol/L (98-107); Chol/HDL Ratio 6.3 (1-3.5); Cholesterol 233 mg/dl (140-200); Estimated Glomerular Filt Rate 89 ml/min (>60); GFR (African American) 107 ML/MIN (>60); Glucose 88 mg/dl (74-100); HDL Cholesterol 37 mg/dl (40-60); Potassium 4.9 mmoL/L (3.5-5.1); Sodium 138 mmol/L (136-145); Total Protein,Serum 7.6 g/dl (6.3-8.2); Triglycerides 301 mg/dl (30-150); VLDL Cholesterol 60 mg/dL (0-40)
[2023-07-09 13:44] LABS: Direct LDL Cholesterol 146.06 mg/dL (100-129)
[2023-07-09 13:50] LABS: Free T4 (Free Thyroxine) 1.03 ng/dl (0.78-2.19)
[2023-07-09 14:04] LABS: Thyroid Stimulating Hormone 1.15 uIU/mL (0.465-4.68)
[2023-07-10 04:22] LABS: Vitamin B12 350 pg/mL (239-931)
== END ==
LOC: LAB 16:01
PROVIDERS: Physician Assistant; PCP Nurse Practitioner Family; Visit Provider Internal Medicine
DX: E78.5 Hyperlipidemia, unspecified (principal); Z86.73 Personal history of transient ischemic attack (TIA), and cerebral infarction without residual deficits; M54.9 Dorsalgia, unspecified; R06.00 Dyspnea, unspecified; R07.9 Chest pain, unspecified; R94.31 Abnormal electrocardiogram [ECG] [EKG]; D75.89 Other specified diseases of blood and blood-forming organs; I10 Essential (primary) hypertension
CPT/HCPCS: 36415; 80048; 80061; 80076; 82607; 82746; 84439; 84443; 85025

== ENCOUNTER 2023-07-24 08:04 | Outpatient (CLI) | payer BC, SELFPAY ==
[2023-07-24] VITALS (7 sets, daily range): BP systolic 102–145; BP diastolic 66–86; PULSE 58–76; RESP 16–17; TEMP 36.2; O2SAT 95–99; BMI 28.9
--- NOTE | 2023-07-24 08:05 | CT_ITS ---
FINAL REPORT CLINICAL HISTORY: back pain, HTN, cp, FINDINGS: Thin section axial CT images of the chest were obtained with contrast. 3D reformatted images were also obtained. This study was performed with techniques to keep radiation doses as low as reasonably achievable (ALARA). Individualized dose reduction techniques using automated exposure control or adjustment of mA and/or kV according to the patient''s size were employed. There is no evidence of pulmonary embolism. There is no evidence of thoracic aortic aneurysm or dissection. There is no evidence of mediastinal or hilar mass or adenopathy. There is no evidence of pulmonary mass or nodule. There is mild bibasilar atelectasis. Limited images of the upper abdomen are unremarkable. IMPRESSION: No evidence of pulmonary embolism. Mild bibasilar atelectasis. Reviewed, Interpreted and Dictated by Teddy Rangel III, MD Transcribed by Emi Ardon Authenticated and [facility]
--- NOTE | 2023-07-24 08:05 | CT_ITS ---
APPROVED REPORT Senior Net Developer Architect: CLINICAL INDICATION Chest Pain TECHNIQUE Image Acquisition: A 128 slice MDCT scanner ([employer]) was used for data acquisition. A noncontrast coronary calcium scan was performed. A CT attenuation threshold of 130 Hounsfield units (HU) was used for the detection of calcium in contiguous voxels of 1 sq mm in area to be counted as individual lesions. Bolus tracking in the ascending aorta with a threshold of 180 HU was performed. Immediately afterwards, ECG synchronized cardiac CT was then performed from the cardiac base to apex using retrospective gating with ECG tube current modulation. A total of 85 mL of Isovue 370 mg/mL contrast medium was administered at 5 mL/sec followed by a saline flush using a biphasic injection protocol. A tube voltage of 120 KVp was used. The patient received the following medications prior to the cardiac CT. 100 mg of oral metoprolol 0.8 mg of sublingual nitroglycerin The average heart rate at the time of acquisition was 49 bpm and regular. Image Reconstruction Transaxial images were reconstructed at 0.67 mm slide thickness. Data was reviewed interactively on an advanced workstation capable of 2 and 3-dimensional displays in all conventional reconstruction formats, including multiplanar reformations, maximum intensity projections, curved multiplanar reformations, and volume rendered reconstructions. When applicable, selected routine images describing the relevant coronary anatomy and pathology were saved and sent to PACS. Complications None Technical Quality Overall image quality was good. Coronary artery opacification was adequate. Total DLP (Dose-Length Product) is 1446.8 mGy-cm. The reported value represents the total of one or more individual components during the CT acquisition of this date and at this time, and as such, the same value may appear in more than one CT report depending on the interpreting/reporting physicians. COMPARISON None FINDINGS CT Coronary Calcium Scoring LMA (Left Main Artery) = 0 LAD (Left Anterior Descending) = 65 LCX (Left Coronary Circumflex) = 3 RCA (Right Coronary Artery) = 0 Total Calcium Score = 68 using the AJ-130 method. The observed calcium score of 68 is at 81th percentile for subjects of the same age, sex, and race/ethnicity. The interpretation of the calcium heart score is based on the following continuum*: 0 = no calcified plaque detected (risk of coronary artery disease is very low ??? less than 5%) 1-10 = calcium detected in extremely minimal levels (risk of coronary diseases is still low ??? less than 10%) 11-100 = mild levels of plaque detected with certainty (mild or minimal narrowing of heart arteries is likely) 101-400 = definite,at least moderate levels of plaque detected (relatively high risk of a heart attack within 3-5 years) >401-999 = extensive levels of plaque detected (high risk of heart attack, high levels of vascular disease are present, high likelihood of at least one significant coronary narrowing) *The calcium heart score quantifies the burden of coronary calcification/plaque in the coronary arteries. The calcium heart score is not able to evaluate the presence or burden of non-calcified (i.e. soft) plaque. There is no identifiable calcification in the aortic valve, mitral annulus or mitral valve, pericardium, or myocardium. Coronary CT Angiography Coronaries have normal origin and proximal course. The coronary arterial system is right dominant. Note: Stenosis is reported as maximum percentage diameter stenosis. Quantitative Stenosis Grading: Left Main (LM): The left main originates normally from the left sinus of Valsalva. The LM bifurcates into the left anterior descending artery an
--- NOTE | 2023-07-24 09:21 | SW/DCPLANNER ---
OR staff called regarding this patient having suicidal thoughts in the past and depression. Per OR staff (Anna Marie/Nayeli) patient is not actively suicidal. OR staff scheduled for patient to be evaluated by Behavioral Health on 08/09/23. I have also made patient an appointment w/ Calixto Mcgee (pt's PCP) for tomorrow at 11:30AM or 1PM. I will continue to follow up w/ OR staff regarding situation.
--- NOTE | 2023-07-24 09:55 | ECG_ITS ---
APPROVED REPORT Exam: Resting ECG HR:72 bpm ECG Measurements Heart Rate 72 AXES MD 182 P 34 QRSd 102 QRS 23 QT 382 T 3 QTc 405 Conclusion SINUS RHYTHM WITH OCCASIONAL VENTRICULAR PREMATURE COMPLEXES INCOMPLETE RIGHT BUNDLE BRANCH BLOCK [90+ ms QRS DURATION, TERMINAL R IN V1/V2, 40+ ms S IN I/aVL/V4/V5/V6] NONSPECIFIC ST & T-WAVE ABNORMALITY BORDERLINE ECG UNCONFIRMED REPORT Electronically signed by : Jack Bergman MD 07/25/2023 21:28:30
--- NOTE | 2023-07-24 10:01 | PC.NURSE ---
Addendum entered by Anna Marie Evans RN 07/24/23 11:36: spoke with Dr. Saucedo regarding if patient was ok to be discharged or if he needed to stay any longer d/t suicide precautions and wanting second torponin, Dr. Saucedo stated pt is ok to be discharged. This RN also spoke with Alexandra Gutierrez RN regarding patient being discharged and she stated if Dr. Saucedo was ok with it and pt was not experiencing any thoughts of harming self today then he can be discharged. Pt stated again that he was not experiencing any thoughts of harming self. Suicide educations and resources for help in the community was given to patient, second verfication of education given to patient by Tor Vargas RN, Alexandra Canseco RN. Original Note: pt expressed history of suicide attempt. he states his last thoughts of harming himself was 1 week ago, he did not act upon it. he stated he was just going to do the same thing i did last time, take some aspirin like i did in 2011. but i didn't do it he states he DOES NOT express any thoughts of harming himself today. pt is in a great mood, and very cooperative with staff. pt is 1:1 with this RN, Alexandra Pickering RN stayed at bedside so this nurse could get some medication from [facility]. environmental safety assessment completed, no risk. Nancy Alvarado notified and appointment given to patient, resource sheet also given. Spoke with Alexandra Gutierrez RN who stated to stay 1:1 and to ask again if he was having any current thoughts, pt stated again that he is not experiencing any thoughts today and has not since one week ago. 0950 pt c/o chest pain. EKG obtain, Dr. Saucedo notified- MD ordered EKG, troponin, and to give 0.8mg of nitro. 1010 pt states cp is better. Dr. Saucedo coming to bedside to see patient and read ekg.
[2023-07-24 10:43] LABS: Troponin I < 0.01 ng/ml (0.00-0.034)
== END 2023-07-24 11:35 | disposition home or self-care (01) ==
PROVIDERS: PCP Nurse Practitioner Family; Visit Provider Internal Medicine
DX: R06.00 Dyspnea, unspecified (principal); R07.9 Chest pain, unspecified; R94.31 Abnormal electrocardiogram [ECG] [EKG]; I10 Essential (primary) hypertension; E78.5 Hyperlipidemia, unspecified; M54.9 Dorsalgia, unspecified
CPT/HCPCS: 36415; 71275; 75574; 84484; 93005; Q9967

== ENCOUNTER → 2023-07-29 10:41 | Outpatient (CLI) | payer BC, SELFPAY ==
--- NOTE | 2023-07-29 10:58 | CA_ITS ---
APPROVED REPORT EXAM: Comprehensive 2D, Doppler, and color-flow Echocardiogram Financial Aid Officer: Jessica Candelario RDCS Ht: 5 ft 9 in Wt: 195lbs BSA: 2.04 BP: 150/102 mmHg Indications: CP,HTN,HLP,SCHRADER 2D Dimensions LVOT 2.22 cm (M/F) 1.5-2.5 M-Mode Dimensions RVDd 2.72 cm (0.9-2.6) LA Diam 4.20 cm (1.9-4.0) LVDd 5.21 cm (3.5-5.7) Ao Diam 2.89 cm (2.0-3.7) LVDs 3.67 cm (3.5-5.7) IVSd 0.77 cm (0.6-1.1) PWd 0.87 cm (0.6-1.1) EF (Teich) 56.20% FS 29.60% EDV (Teich) 130.10 mL TAPSE 2.42 (<1.7) ESV (Teich) 57.00 mL LV Diastology E Decel Time 250.00 (160-240 msec) E/A Ratio 0.8 MED E' 6.70 (< 7 cm/sec) E'/MED E' Ratio 7.99 (>14) LAT E' 9.40 (<10 cm/sec) E/LAT E' Ratio 5.69 (>14) Mitral Valve MV E Max Jeremy. 54.00 (40-130 cm/s) MV A Velocity 71.00 (40-130 cm/s) E/A Ratio 0.75 MV Decel. Time 250.00 (160-240 ms) MV PHT 73.00 ms Tricuspid Valve TR P. Velocity 272.00 cm/s RAP Estimate 10.00 mmHg RVSP 39.50 mmHg Left Ventricle The left ventricle is normal size. The left ventricular systolic function is normal. The left ventricular ejection fraction is within the normal range. There is normal left ventricular wall thickness. There is normal LV segmental wall motion. The left ventricular diastolic function is normal. LVEF is 55-60%. Right Ventricle Right ventricle is mildly dilated. The right ventricular systolic function is normal. Atria The left atrium size is normal. Right atrium is mildly dilated. Aortic Valve The aortic valve opens well. The aortic valve is trileaflet. There is no aortic valvular stenosis. No aortic regurgitation is present. Mitral Valve The mitral valve is normal in structure. No evidence of mitral valve stenosis. Trace mitral regurgitation. Tricuspid Valve The tricuspid valve leaflets are thin and pliable. Mild tricuspid regurgitation. RVSP is 25-30 mmHg. Pulmonic Valve The pulmonary valve is normal in structure. Trace pulmonic regurgitation. Great Vessels The aortic root is normal in size. The ascending aorta is normal in size. IVC is normal in size and collapses >50% with inspiration. Pericardium There is no pericardial effusion. Other Information Study Quality: Fair Conclusion Normal biventricular systolic function. Mildly dilated RV. Mild RA dilatation. Mild TR. RVSP 25-30 mmHg. Electronically signed by : Lyn Saucedo MD 07/29/2023 22:10:09
== END ==
LOC: RT 10:42
PROVIDERS: PCP Nurse Practitioner Family; Visit Provider Internal Medicine
DX: I10 Essential (primary) hypertension (principal); R06.00 Dyspnea, unspecified; R07.9 Chest pain, unspecified; E78.5 Hyperlipidemia, unspecified; R94.31 Abnormal electrocardiogram [ECG] [EKG]; M54.9 Dorsalgia, unspecified
CPT/HCPCS: 93306

== ENCOUNTER 2024-01-12 21:28 | Emergency (ER) | payer BC, SELFPAY ==
[2024-01-12 22:03] VITALS: BP 156/108; PULSE 84; RESP 16; O2SAT 97
[2024-01-12 22:10] VITALS: BP 156/108; PULSE 89; RESP 16; TEMP 36.9; O2SAT 98; BMI 25.0
--- NOTE | 2024-01-12 22:23 | HMH.EDGENADL ---
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 treatment and management plan for this patient?s care in the Emergency Department, thus performing a substantive portion of the medical decision making. Sal Pavon MD Critical Care <MURPHY Whitt - Last Filed: 01/12/24 23:49> Critical Care Time Critical Care Time: No
[2024-01-12] MEDS: LACTATED RINGERS 1000ML 500 ML IV (22:24)
[2024-01-12 22:26] LABS: Basophils # 0.1 K/mm3 (0-0.2); Basophils % 1.3 % (0.1-2.0); Eosinophils # 0.1 K/mm3 (0.0-0.4); Eosinophils % 1.4 % (0.1-12.0); Hematocrit 45.5 % (42.0-52.0); Hemoglobin 15.3 g/dL (14.1-18.0); Lymphocytes # 3.1 K/mm3 (0.7-4.5); Lymphocytes % 47.2 % (10-50); Mean Corpuscular HGB Conc 33.5 g/dL (31.8-35.4); Mean Corpuscular Hemoglobin 32.3 pg (27.0-31.2); Mean Corpuscular Volume 96.5 fl (80-94); Mean Platelet Volume 7.6 fl (7.4-10.4); Monocytes # 0.4 K/mm3 (0.1-1.0); Monocytes % 5.3 % (1.7-9.3); Neutrophils # 2.9 K/mm3 (1.8-7.8); Neutrophils % 44.8 % (37.0-80.0); Platelet Count 260 K/mm3 (142-424); Red Blood Count 4.72 M/mm3 (4.60-6.20); Red Cell Distribution Width 13.2 % (11.5-17.5); White Blood Count 6.5 K/mm3 (4.8-10.8)
[2024-01-12 22:27] LABS: Chloride 109 mmol/L (98-107); Sodium 144 mmol/L (136-145)
[2024-01-12 22:28] LABS: Potassium 3.9 mmoL/L (3.5-5.1)
[2024-01-12 22:30] LABS: Alanine Aminotransferase 35 U/L (12-78); Alkaline Phosphatase 109 U/L (38-126); Aspartate Amino Transferase 31 U/L (17-59); Bilirubin,Total 0.6 mg/dl (0.2-1.3); Blood Urea Nitrogen 10 mg/dl (9-20); Creatinine Clearance Estimated 88 mL/min (50-200); Estimated Glomerular Filt Rate 78 ml/min (>60); GFR (African American) 95 ML/MIN (>60)
[2024-01-12 22:31] LABS: Albumin Level 4.2 g/dl (3.5-5.0); Albumin/Globulin Ratio 1.3 (1.1-1.8); Anion Gap 8.9 mEq/L (5-15); Carbon Dioxide 30 mmol/L (22.0-30.0); Globulin 3.2 g/dL (1.3-3.2); Glucose 117 mg/dl (74-100); Total Protein,Serum 7.4 g/dl (6.3-8.2)
--- NOTE | 2024-01-12 22:31 | CT_ITS ---
PROCEDURE INFORMATION: Exam: CT Lumbar Spine With Contrast Exam date and time: 01/12/2024 11:04 PM Age: 53 years old Clinical indication: Numbness; Additional info: Numbness, tingling, loss of bladder control TECHNIQUE: Imaging protocol: Computed tomography of the lumbar spine with contrast. Radiation optimization: All CT scans at this facility use at least one of these dose optimization techniques: automated exposure control; mA and/or kV adjustment per patient size (includes targeted exams where dose is matched to clinical indication); or iterative reconstruction. Contrast material: ISOVUE; Contrast volume: 50 ml; Contrast route: IV; COMPARISON: CT THORACIC SPINE W CON 01/12/2024 11:00 PM FINDINGS: Bones/joints: No loss of vertebral body height. No lytic or blastic lesions. Mild L3-L4, L4-L5, and L5-S1 degenerative disc disease. Bilateral L5 pars defects. Slight retrolisthesis of L4 over L5. Posterior disc bulges at L4-L5 and L5-S1 cause mild central canal stenosis. Mild left L4-L5 and L5-S1 foraminal stenosis. Soft tissues: Unremarkable. IMPRESSION: 1. Mild lower lumbar spine degenerative changes with mild left L4-L5 and L5-S1 foraminal stenosis. 2. Bilateral L5 pars defects. Slight retrolisthesis of L4 over L5.
--- NOTE | 2024-01-12 22:31 | CT_ITS ---
PROCEDURE INFORMATION: Exam: CT Cervical Spine With Contrast Exam date and time: 01/12/2024 10:56 PM Age: 53 years old Clinical indication: Numbness; Additional info: Numbness, tingling, loss of bladder control TECHNIQUE: Imaging protocol: Computed tomography of the cervical spine with contrast. Radiation optimization: All CT scans at this facility use at least one of these dose optimization techniques: automated exposure control; mA and/or kV adjustment per patient size (includes targeted exams where dose is matched to clinical indication); or iterative reconstruction. Contrast material: ISOVUE; Contrast volume: 50 ml; Contrast route: IV; COMPARISON: CT ANGIO CHEST 07/24/2023 11:08 AM FINDINGS: Bones/joints: No fractures or acute listhesis. No lytic or blastic lesions. Moderate left C4-C5 facet arthropathy with 2 mm of grade 1 anterolisthesis of C4 over C5. Mild C4-C5 and moderate C5-C6 degenerative disc disease. Posterior endplate spurring at C5-C6 is causing mild spinal canal stenosis. Moderate left C5-C6 foraminal stenosis. Lungs: Lung apices are normal. Soft tissues: Unremarkable. IMPRESSION: 1. Left C4-C5 facet arthropathy with mild grade 1 anterolisthesis of C4 over C5. 2. Mild C4-C5 and moderate C5-C6 degenerative disc disease.
--- NOTE | 2024-01-12 22:31 | CT_ITS ---
PROCEDURE INFORMATION: Exam: CT Thoracic Spine With Contrast Exam date and time: 01/12/2024 11:00 PM Age: 53 years old Clinical indication: Numbness; Additional info: Numbness, tingling, loss of bladder control TECHNIQUE: Imaging protocol: Computed tomography of the thoracic spine with contrast. Radiation optimization: All CT scans at this facility use at least one of these dose optimization techniques: automated exposure control; mA and/or kV adjustment per patient size (includes targeted exams where dose is matched to clinical indication); or iterative reconstruction. Contrast material: ISOVUE; Contrast volume: 50 ml; Contrast route: IV; COMPARISON: CT CERVICAL SPINE W CON 01/12/2024 10:56 PM FINDINGS: Bones/joints: Mild thoracic spine dextroscoliosis. No significant degenerative changes. No fractures or listhesis. No lytic or blastic lesions. Soft tissues: Unremarkable. Lymph nodes: Calcified mediastinal and right hilar lymph nodes. Lungs: Calcified granuloma in the left upper lobe. IMPRESSION: No significant abnormality of the thoracic spine.
--- NOTE | 2024-01-12 22:31 | CT_ITS ---
PROCEDURE INFORMATION: Exam: CT Abdomen And Pelvis With Contrast Exam date and time: 01/12/2024 11:08 PM Age: 53 years old Clinical indication: Other: Gi bleed; Additional info: Numbness, tingling, loss of bladder control, gi bleed TECHNIQUE: Imaging protocol: Computed tomography of the abdomen and pelvis with contrast. Radiation optimization: All CT scans at this facility use at least one of these dose optimization techniques: automated exposure control; mA and/or kV adjustment per patient size (includes targeted exams where dose is matched to clinical indication); or iterative reconstruction. Contrast material: ISOVUE; Contrast volume: 50 ml; Contrast route: IV; COMPARISON: CT ABDOMEN PELVIS WO CON 10/31/2020 12:40 PM FINDINGS: Lungs: Mild bibasilar atelectasis. Liver: Mild hepatic steatosis. No hepatomegaly or liver lesion. Gallbladder and bile ducts: Normal. No calcified stones. No ductal dilation. Pancreas: Normal. No ductal dilation. Spleen: Normal. No splenomegaly. Adrenal glands: Normal. No mass. Kidneys and ureters: Normal. No hydronephrosis. Stomach and bowel: Unremarkable. No obstruction. No mucosal thickening. Appendix: No evidence of appendicitis. Intraperitoneal space: Unremarkable. No free air. No significant fluid collection. Vasculature: Unremarkable. No abdominal aortic aneurysm. Incidental retroaortic left renal vein. Lymph nodes: Unremarkable. No enlarged lymph nodes. Urinary bladder: Unremarkable as visualized. Reproductive: Mildly enlarged prostate. Bones/joints: Bilateral L5 pars defects. Slight retrolisthesis L4 over L5. Soft tissues: Unremarkable. IMPRESSION: No acute findings.
[2024-01-12 22:39] LABS: Occult Blood,Stool Positive (Negative)
[2024-01-12 22:46] LABS: INR 0.99 (0.9-1.1); Prothrombin Time 10.7 seconds (10.1-12.5)
--- NOTE | 2024-01-12 23:03 | PC.NURSE ---
Pt gone to CT
[2024-01-12] MEDS: SODIUM CHLORIDE 0.9% 10ML SYR (RAD ONLY) 10 ML IV (23:13)
[2024-01-12] MEDS: IOPAMIDOL-370 (76%);100ML BOTTLE 200 ML IV (23:13)
[2024-01-12] MEDS: ACETAMINOPHEN 1,000MG/100ML VIAL 1000 MG IV (23:15)
[2024-01-12] MEDS: METHYLPREDNISOLONE SOD SUCC 125MG VIAL 125 MG IV (23:15)
[2024-01-12 23:28] VITALS: BP 155/106; PULSE 78; O2SAT 96
[2024-01-12 23:33] VITALS: BP 166/108; PULSE 66; RESP 16; O2SAT 96
[2024-01-12 23:33] LABS: Magnesium 2.3 mg/dl (1.6-2.3)
[2024-01-13 00:39] VITALS: BP 145/106; PULSE 72; O2SAT 93
[2024-01-13 00:51] LABS: Lactic Acid 1.8 mmol/L (0.7-2.1)
--- NOTE | 2024-01-13 00:57 | PC.NURSE ---
contacted [facility], spoke with girish. was asked if we had shared images as requested. verified with kj in rad while on phone with [facility]. states that she will find out what's going on and call us back.
--- NOTE | 2024-01-13 01:09 | PC.NURSE ---
I called radiology, they are making us a disc
--- NOTE | 2024-01-13 01:14 | PC.NURSE ---
Report given to Kasey @ [facility]
[2024-01-13 01:40] VITALS: BP 0/0; PULSE 0; RESP 0; TEMP -17.7; TEMP 0
== END 2024-01-13 01:35 | disposition other institution (70) ==
PROVIDERS: Physician Assistant; Emergency Provider Emergency Medicine; PCP Nurse Practitioner Family
DX: K92.2 Gastrointestinal hemorrhage, unspecified (principal); G83.4 Cauda equina syndrome; R20.2 Paresthesia of skin; M54.50 Low back pain, unspecified; R32 Unspecified urinary incontinence; I10 Essential (primary) hypertension; E78.5 Hyperlipidemia, unspecified; Z87.891 Personal history of nicotine dependence
CPT/HCPCS: 36415; 72126; 72129; 72132; 74177; 80053; 82272; 83605; 83735; 85025; 85610; 85730; 86850; 96374; 96375; 99285; G0328; J0131; Q9967

== ENCOUNTER 2024-05-21 09:00 | Outpatient (POV) | payer BC, SELFPAY ==
--- NOTE | 2024-05-21 10:31 | EXP.PAIN.OV ---
HPI Data of Consult Patient: new to practice Consult date: 05/21/24 Requesting Physician: Rossy Arreola APRN Primary Care Provider: Donnie Mcgee APRN Consult Narrative Reason for consult: Neck pain, low back pain, hip pain History of present illness: Mr. Walker is a 53 year old male who presents today as a new patient. He is a referral from Bambi Cutler's office. Today he rates his pain a 5 out of 10. Patient does state that he has chronic pain in multiple locations including around his neck, low back and bilateral hips. He does also state that he has bad knees and has numbness into his feet. Patient states that he has had a lot of this since his 20s unrelated to any specific trauma or injury. He does describe it as a aching, throbbing sensation with numbness and pressure. Patient does state the pain interferes with his ability perform activities of daily living. Patient does state he has tried oral medications along with heat and ice and topicals with minimal improvement. Patient does also state that he did go to neurosurgeon for consult and that they are recommending both a neck and lumbar fusion however he is trying to prevent having to do this unless he absolutely needs to. Patient does state that both his brother and dad have had fusions and that they still have chronic pain. Patient did go through physical therapy however this aggravated and made his pain symptoms worse. Patient is interested in any help we may be able to provide. He denies any prior back surgery or injection history. His Andrea has been reviewed and is appropriate. CC: Rossy Arreola APRN [facility] Disclaimer: The information contained in this section may have been updated after the patient was seen, as this information can be updated by other users. Medical History History of schizophrenia Family history of heart disease HTN (hypertension) Eric's blood pressure is high today. He states has been very high at home as high as greater than 170/110 without the current pain that he is experiencing. I think increasing his lisinopril to 40 mg/day would be indicated at this point. He is also on metoprolol. He is going to have an echocardiogram as well as a angiogram done in the very near future at [facility]. In the interim and afterwards I have asked Eric to check his blood pressures record them and bring them back to the clinic. HLD (hyperlipidemia) Triglycerides were 301 cholesterol 233 LDL 146 and HDL of 37 triglycerides are too high as is the LDL. The HDL is too low. He needs to be started on a cholesterol medication and a statin would certainly be the first choice. He is following with cardiology for the procedures described above. If he is not on these medications when he returns I will place them in his medical regimen. Restless sleeper Eric shared that he has trouble falling asleep and staying asleep for 5 yrs. Daytime somnolence Palpitations Abnormal electrocardiography Dyspnea Chest pain Surgical History History of ankle surgery History of vasectomy History of tonsillectomy Family History Other Colon cancer Family history of acute congestive heart failure Family history of acute heart failure Family history of hyperlipidemia Family history of hypertension Social History Smoking Status: Current some day smoker tobacco type: cigars alcohol intake: current alcohol intake frequency: a few times a month substance use type: denies use current occupational status: employed Travel in the last 8 weeks: None household members: none housing: house number of children: 3 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 caffeine: Yes Review of Systems Review of Systems Review of systems:: pertinent systems reviewed and negative unless documented below Review of systems (narrative): Review of Systems: General: No recent weight changes, no fever, no sleep disturbances Respiratory: No cough, no shortness of air, no recurring pulmonary infections Cardiovascular/peripheral vascular: No chest pain, no palpitations, no edema, no shortness of breath Gastrointestinal: No new onset incontinence, normal bowel movements reported Genitourinary: No new onset incontinence Musculoskeletal: Neck pain, low back pain, hip pain Psychiatric: [Normal mood/affect] Neurological: [Denies weakness in extremities], [denies balance issues] Meds Home Medications and Allergies Home Medications ?Medication ?Instructions ?Recorded ?Confirmed ?Type aspirin 81 mg tablet,delayed 81 mg PO DAILY 06/12/21 05/18/24 History release albuterol sulfate 90 mcg/actuation 2 puff inhalation Q4-6H PRN 10/11/22 05/18/24 Rx aerosol inhaler shortness of breath or wheezing #8.5 grams atorvastatin 40 mg tablet 40 mg PO HS #30 tabs 03/18/24 05/18/24 Rx olanzapine 10 mg tablet 10 mg PO DAILY #30 tabs 03/18/24 05/18/24 Rx lisinopril 40 mg tablet See Rx Instructions .Route 04/22/24 05/18/24 Rx .COMPLEX #90 tabs amlodipine 10 mg tablet See Rx Instructions .Route 04/25/24 05/18/24 Rx .COMPLEX #90 tabs lamotrigine 25 mg tablet (Lamictal) 50 mg (2 x 25 mg) PO DAILY #60 tabs 05/18/24 05/18/24 Rx New Prescriptions to Start Prescriptions: Allergies Allergy/AdvReac Type Severity Reaction Status Date / Time amoxicillin Allergy Verified 05/18/24 09:17 azithromycin Allergy Verified 05/18/24 09:17 Penicillins Allergy Verified 05/18/24 09:17 Objective Narrative: Physical Exam: General: Alert and oriented x3, no acute distress, pleasant and cooperative Lungs: Respirations even and unlabored, symmetrical chest expansion Eyes: PERRL Musculoskeletal: Flexion and extension of lumbar [spine] somewhat guarded secondary to pain, [antalgic gait noted] point tenderness along bilateral SIs with positive bilateral Nancy's, Vicente's, Gaenslen's, compression and distraction exam Neurological: Speech clear, no gross sensory deficit Additional findings Additional findings: TECHNIQUE: Imaging protocol: Computed tomography of the lumbar spine with contrast. Radiation optimization: All CT scans at this facility use at least one of these dose optimization techniques: automated exposure control; mA and/or kV adjustment per patient size (includes targeted exams where dose is matched to clinical indication); or iterative reconstruction. Contrast material: ISOVUE; Contrast volume: 50 ml; Contrast route: IV; COMPARISON: CT THORACIC SPINE W CON 01/12/2024 11:00 PM FINDINGS: Bones/joints: No loss of vertebral body height. No lytic or blastic lesions. Mild L3-L4, L4-L5, and L5-S1 degenerative disc disease. Bilateral L5 pars defects. Slight retrolisthesis of L4 over L5. Posterior disc bulges at L4-L5 and L5-S1 cause mild central canal stenosis. Mild left L4-L5 and L5-S1 foraminal stenosis. Soft tissues: Unremarkable. IMPRESSION: 1. Mild lower lumbar spine degenerative changes with mild left L4-L5 and L5-S1 foraminal stenosis. 2. Bilateral L5 pars defects. Slight retrolisthesis of L4 over L5. Assessment and Plan *Assessment and plan (1) Bilateral sacroiliitis: Status: Acute Category: Medical Code(s): M46.1 - Sacroiliitis, not elsewhere classified (2) Degenerative disc disease, lumbar: Status: Acute Category: Medical Code(s): M51.36 - Other intervertebral disc degeneration, lumbar region (3) Degenerative disc disease, cervical: Status: Acute Category: Medical Code(s): M50.30 - Other cervical disc degeneration, unspecified cervical region (4) Bilateral hip pain: Status: Acute Category: Medical Code(s): M25.551 - Pain in right hip; M25.552 - Pain in left hip Plan Patient is experiencing worsening pain throughout his low back and bilateral hips. Patient did have limited range of motion along with point tenderness along his bilateral SI's and a positive Nancy's, Vicente's, Gaenslen's, compression and distraction exam. I did discuss with the patient that he may benefit from bilateral SI injections. Risk and benefits were discussed with patient and he would like to proceed forward with this plan of care. Patient has tried and failed conservative therapy including physical therapy and continued at home stretching exercise for longer than 12 weeks. Patient will be scheduled for bilateral SI injections under fluoroscopy. Patient has been instructed to contact the clinic with any concerns before the next appointment. Dr. Perez has reviewed this note and agrees with this plan of care. This note was dictated using voice recognition software and make contain errors or omissions. All injections are used with Lidocaine or Bupivacaine and Depo Medrol.
[2024-05-21 11:01] VITALS: BP 155/103; PULSE 68; RESP 18; O2SAT 95; BMI 30.2
== END 2024-05-21 23:59 | disposition home or self-care (01) ==
LOC: SC.PAIN 09:01
PROVIDERS: PCP Nurse Practitioner Family; Visit Provider Nurse Practitioner Family
DX: M46.1 Sacroiliitis, not elsewhere classified (principal); M51.36 Other intervertebral disc degeneration, lumbar region; M50.30 Other cervical disc degeneration, unspecified cervical region; M25.551 Pain in right hip; M25.552 Pain in left hip; F17.210 Nicotine dependence, cigarettes, uncomplicated; Z73.89 Other problems related to life management difficulty
CPT/HCPCS: 99202; G0463

== ENCOUNTER 2024-12-07 13:06 | Emergency (ER) | payer SELFPAY ==
[2024-12-07 13:19] VITALS: BP 156/99; PULSE 101; RESP 18; TEMP 36.8; O2SAT 97; BMI 29.5
--- NOTE | 2024-12-07 13:37 | CT_ITS ---
FINAL REPORT TECHNIQUE: After the administration of oral and intravenous contrast, axial images were obtained through the abdomen and pelvis by computed tomography. The study was performed with techniques to keep radiation dose as low as reasonably achievable, (ALARA). Individual dose reduction techniques using automated exposure control or adjustment of mA and/or kV according to the patient's size were employed. CLINICAL HISTORY: LLQ, left flank pain COMPARISON: 10/31/2020 FINDINGS: Abdomen: Atelectasis is present in the lung bases. There is moderate diffuse fatty infiltration of the liver. The gallbladder is present. The spleen, pancreas and adrenals appear unremarkable. There is moderate left hydronephrosis and left hydroureter to the level of the UVJ on the left side, secondary to a 6 mm calcified stone. The aorta is normal in caliber. There is no free fluid or adenopathy. Pelvis: The appendix is not identified. The urinary bladder is decompressed. There is no free fluid or adenopathy. IMPRESSION: Moderate left hydronephrosis and hydroureter to the level of the UVJ on the left, secondary to a 6 mm calcified stone. Reviewed, Interpreted and Dictated by Roni Estrada MD Transcribed by Dodie Shaw Authenticated and [facility]
--- NOTE | 2024-12-07 13:44 | [facility].EDGENADL ---
Discharge Plan Disposition Patient Disposition: Home, Self-Care Condition: Good Prescriptions Prescriptions: New ketorolac 10 mg tablet 10 mg PO Q8H PRN (Reason: pain) 3 Days Qty: 12 0RF oxycodone 5 mg tablet 5 mg PO Q8H PRN (Reason: pain) Qty: 12 0RF ondansetron 4 mg tablet,disintegrating 4 mg PO Q8H PRN (Reason: nausea and vomiting) 4 Days Qty: 12 0RF tamsulosin [Flomax] 0.4 mg capsule 0.4 mg PO HS Qty: 14 0RF No Action aspirin 81 mg tablet,delayed release (DR/EC) 81 mg PO DAILY lamotrigine [Lamictal] 25 mg tablet 50 mg PO DAILY Qty: 60 2RF Rx Instructions: If you develop a rash, stop the medication and call the clinic. albuterol sulfate 90 mcg/actuation HFA aerosol inhaler 2 puff inhalation Q4-6H PRN (Reason: shortness of breath or wheezing) Qty: 8.5 0RF olanzapine 10 mg tablet 50 mg PO DAILY amlodipine 10 mg tablet See Rx Instructions .ROUTE .COMPLEX Qty: 90 1RF Dose Instruction: Take 1 tablet by mouth once daily Rx Instructions: Take 1 tablet by mouth once daily lisinopril 40 mg tablet See Rx Instructions .ROUTE .COMPLEX Qty: 90 0RF Dose Instruction: Take 1 tablet by mouth once daily Rx Instructions: Take 1 tablet by mouth once daily Referrals Follow up/Referrals: Donnie Mcgee APRN [Primary Care Provider] - See instructions Activity Restrictions/Add. Instructions Additional Instructions/Restrictions: You were evaluated in the emergency department today. You were diagnosed with a kidney stone. Follow-up closely with urology. We do not have an interventional urologist at our healthcare facility, but one close option is Dr. Ari Roman in [place] ([facility] - [address], [place] [address] - [phone]). Please make sure you drink plenty of fluids and stay orally hydrated. Toradol is an NSAID like ibuprofen and aleve, so do not take other NSAIDs while taking this medication. Try getting by with toradol and Tylenol, but you may choose to take the narcotic pain medication provided to you in the event of severe pain not controlled by these medications. Do not drive or operate heavy machinery while taking narcotic pain medication, as it can be sedating. Narcotic pain medication can be addicting and can cause constipation. Follow-up closely with your primary care provider as well. Return to the emergency department for new or worsening symptoms such as significant worsening in pain, fever greater than 100.4 ?F, intractable nausea and vomiting. Clinical Impressions Clinical Impression: Ureterolithiasis, Abdominal pain, Acute left flank pain, DORA (acute kidney injury) Stand Alone Forms Stand Alone Forms: Work/School Release Instructions Patient Instructions: DI for Kidney Stones Print Language Print Language: Lao Discharge ED Provider: Rossy Paredes General Adult HPI <Juan R Emery MD - Last Filed: 12/07/24 16:02> General Chief complaint: Abdominal Pain Stated complaint: L Lower abd pain, vomiting Time Seen by Provider: 12/07/24 13:31 Mode of Arrival: Ambulatory Source of Information: Patient Description of Symptoms (Recalled from ER Triage Doc. by RN): Pt presents for evaluation of left flank pain that radiates to his left lower abdomen that started at 0130. Pt states it woke him up. Pt states he is urinating more frequently and has had vomiting and diarreha. History of Present Illness HPI narrative: Darryl Walker is a 54y male with a history of schizoaffective disorder and hypertension who presents to the emergency department for complaints of left-sided abdominal pain that radiates to his left flank. Patient states that he woke up with this pain at 1:00 this morning and has had associated 2 episodes of nonbilious nonbloody vomiting. He has also had 3 episodes of diarrhea. He does report there is some blood in his diarrhea but states that he also has hemorrhoids and this is not unusual for him. He denies any hematuria or dysuria but is concerned he may have a kidney stone. He has never had a kidney stone before. He denies any chest pain or shortness of breath. He denies any fever. Related Data Home Medications ?Medication ?Instructions ?Recorded ?Confirmed aspirin 81 mg tablet,delayed 81 mg PO DAILY 06/12/21 12/07/24 release olanzapine 10 mg tablet 50 mg PO DAILY 08/18/24 12/07/24 Previous Rx's ?Medication ?Instructions ?Recorded albuterol sulfate 90 mcg/actuation 2 puff inhalation Q4-6H PRN 01/12/23 aerosol inhaler shortness of breath or wheezing #8.5 grams amlodipine 10 mg tablet See Rx Instructions .Route 04/25/24 .COMPLEX #90 tabs lamotrigine 25 mg tablet (Lamictal) 50 mg (2 x 25 mg) PO DAILY #60 tabs 05/18/24 lisinopril 40 mg tablet See Rx Instructions .Route 11/16/24 .COMPLEX #90 tabs ketorolac 10 mg tablet 10 mg PO Q8H PRN pain 3 days #12 12/07/24 tabs ondansetron 4 mg disintegrating 4 mg PO Q8H PRN nausea and 12/07/24 tablet vomiting 4 days #12 tabs oxycodone 5 mg tablet 5 mg PO Q8H PRN pain #12 tabs 12/07/24 tamsulosin 0.4 mg capsule (Flomax) 0.4 mg PO HS #14 caps 12/07/24 Allergies Allergy/AdvReac Type Severity Reaction Status Date / Time amoxicillin Allergy Verified 08/18/24 09:53 azithromycin Allergy Verified 08/18/24 09:53 Penicillins Allergy Verified 08/18/24 09:53 [facility] <Juan R Emery MD - Last Filed: 12/07/24 16:02> [facility] Disclaimer: The information contained in this section may have been updated after the patient was seen, as this information can be updated by other users. Medical History History of schizophrenia Family history of heart disease HTN (hypertension) Eric's blood pressure is high today. He states has been very high at home as high as greater than 170/110 without the current pain that he is experiencing. I think increasing his lisinopril to 40 mg/day would be indicated at this point. He is also on metoprolol. He is going to have an echocardiogram as well as a angiogram done in the very near future at [facility]. In the interim and afterwards I have asked Eric to check his blood pressures record them and bring them back to the clinic. HLD (hyperlipidemia) Triglycerides were 301 cholesterol 233 LDL 146 and HDL of 37 triglycerides are too high as is the LDL. The HDL is too low. He needs to be started on a cholesterol medication and a statin would certainly be the first choice. He is following with cardiology for the procedures described above. If he is not on these medications when he returns I will place them in his medical regimen. Restless sleeper Eric shared that he has trouble falling asleep and staying asleep for 5 yrs. Daytime somnolence Palpitations Abnormal electrocardiography Dyspnea Chest pain Surgical History History of ankle surgery History of vasectomy History of tonsillectomy Family History Other Colon cancer Family history of acute congestive heart failure Family history of acute heart failure Family history of hyperlipidemia Family history of hypertension Social History Smoking Status: Never smoker alcohol intake: current alcohol intake frequency: a few times a month substance use type: denies use current occupational status: employed Travel in the last 8 weeks: None household members: none housing: house number of children: 3 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 caffeine: Yes Have you lived/traveled outside [place] in past 30 days?: No Contact w/someone who lives/traveled outside US past 30 days?: No Exposure to someone with infectious disease in past 14 days?: No Do you have a fever (greater than 100.4 F or 38 C)?: No Have you tested positive for COVID-19: No Exposed to someone with COVID-19 in past 14 days?: No Do you have a sore throat?: No Do you have a cough?: No Do you have any weakness?: No Do you have any diarrhea?: No Are you experiencing any unusual bleeding?: No Do you have any muscle aches/pain?: No Do you have any abdominal pain?: Yes Are you experiencing loss of taste or smell?: No Other Medical History Have you received the Flu Vaccine for this season: No Have you received the Pneumonia Vaccine: No <Juan R Emery MD - Last Filed: 12/07/24 16:02> ROS Obtained: Yes Systems reviewed as appropriate & no additional complaints except as documented Physical Exam <Juan R Emery MD - Last Filed: 12/07/24 16:02> General General appearance: alert and in no apparent distress Comment: Appears mildly uncomfortable Head Head exam: atraumatic Eye Eye exam: Present normal appearance ENT ENT exam: Present normal external ear exam Neck Neck exam: Present full ROM Chest Chest inspection: Present symmetric chest wall rise Respiratory Respiratory exam: Present normal lung sounds bilaterally; Absent respiratory distress Cardiovascular Cardiovascular exam: Present regular rate and normal rhythm Abdominal Exam Abdominal exam: Present soft and tenderness (Left lower quadrant); Absent distention or guarding exam: Present deferred Extremities Exam Extremities exam: Present normal inspection Back Exam Back exam: Present normal inspection and CVA tenderness (L); Absent CVA tenderness (R) Neurological Exam Neurological exam: Present alert and oriented X3 Psychiatric Psychiatric exam: Present normal affect Skin Skin exam: Present warm and dry Medical Decision Making <Juan R Emery MD - Last Filed: 12/07/24 16:02> Medical Records Screening: Per USPSTF and CDC recommendations, given the prevalence of disease in our region, it is our hospital?s policy to screen for HIV and viral Hepatitis for all patients aged 18 and over and those with ongoing risk factors. Andrea Inquiry Pt receiving controlled substance: No Vital Signs: 12/07/24 13:19 12/07/24 14:52 12/07/24 17:06 Temperature 98.2 F Temperature Source Oral Pulse Rate 89 98 H Pulse Rate [Right] 101 H Respiratory Rate 18 Blood Pressure 156/90 H 136/82 Blood Pressure [Right Arm] 156/99 H Blood Pressure Mean [Right Arm] 118 02 Sat by Pulse Oximetry 97 100 98 Oxygen Delivery Method Room Air Room Air 12/07/24 17:26 Temperature 98.2 F Temperature Source Pulse Rate 94 H Pulse Rate [Right] Respiratory Rate 15 Blood Pressure 143/92 H Blood Pressure [Right Arm] Blood Pressure Mean [Right Arm] 02 Sat by Pulse Oximetry Oxygen Delivery Method Room Air Lab Data Lab Results 12/07/24 13:37: VBG pH 7.40, VBG pCO2 37.0, VBG pO2 46.0 H, VBG HCO3 22.1 L, VBG Total CO2 23.3, VBG O2 Saturation 82.1 H, VBG Base Excess -2.7 L, VBG Lactic Acid 1.9 12/07/24 13:49: WBC 10.2, RBC 4.59 L, Hgb 13.9 L, Hct 41.6 L, MCV 90.6, MCH 30.3, MCHC 33.4, RDW 12.8, Plt Count 231, MPV 8.6, Neut % (Auto) 83.8 H, Lymph % (Auto) 12.6, [place] % (Auto) 3.1, Eos % (Auto) 0.0 L, Baso % (Auto) 0.2, Neut # (Auto) 8.6 H, Lymph # (Auto) 1.3, [place] # (Auto) 0.3, Eos # (Auto) 0.0, Baso # (Auto) 0.0, Sodium 139, Potassium 3.9, Chloride 105, Carbon Dioxide 25, Anion Gap 12.9, BUN 16, Creatinine 1.40 H, Estimated Creat Clear 77, Estimated GFR 53 L, Est GFR ( Amer) 64, Glucose 125 H, Calcium 9.6, Total Bilirubin 0.7, AST 38, ALT 53, Alkaline Phosphatase 126, Total Protein 7.8, Albumin 4.8, Globulin 3.0, Albumin/Globulin Ratio 1.6, Lipase 70 12/07/24 13:50: Urine Color Yellow, Urine Appearance Clear, Urine pH 5.5, Ur Specific [place] >= 1.030, Urine Protein Negative, Urine Glucose (UA) Negative, Urine Ketones Negative, Urine Blood Trace A, Urine Nitrate Negative, Urine Bilirubin Negative, Urine Urobilinogen 0.2, Ur Leukocyte Esterase Negative, Urine RBC None, Urine WBC None, Ur Squamous Epith Cells Occasional, Urine Bacteria Trace 12/07/24 13:49 12/07/24 13:49 Orders (Tests/Meds): ED MEDICATIONS Discontinued Medications Generic Name Dose Route Start Last Admin Trade Name Freq PRN Reason Stop Dose Admin Lactated Ringer's 1,000 mls @ 999 mls/hr 12/07/24 13:37 12/07/24 14:06 Lactated Ringer's 1000 Ml Bag IV 12/07/24 14:37 999 mls/hr .Q1H1M ONE Administration Iopamidol 75 ml 12/07/24 14:19 12/07/24 14:20 Iopamidol-370 (76%);100ml Bottle IV 12/07/24 14:20 75 ml ONCE ONE Administration Morphine Sulfate 4 mg 12/07/24 13:37 12/07/24 14:07 Morphine 4mg/Ml Syringe IV 12/07/24 13:38 4 mg ONCE ONE Administration Ondansetron HCl 4 mg 12/07/24 13:37 12/07/24 14:07 Ondansetron 4mg/2ml Vial IV 12/07/24 13:38 4 mg ONCE ONE Administration Sodium Chloride 10 ml 12/07/24 14:19 12/07/24 14:20 Sodium Chloride 0.9% 10ml Syr (Rad Only) IV 12/07/24 14:20 10 ml ONCE ONE Administration ORDERS Category Date Time Status CT abdomen pelvis w con Stat Cat Scan 12/07/24 13:37 Completed CBC w/Auto Diff [Complete Blood Count Auto Diff] Stat Lab 12/07/24 13:49 Completed CMP [Comprehensive Metabolic Panel] Stat Lab 12/07/24 13:49 Completed Lipase Stat Lab 12/07/24 13:49 Completed Urinalysis and Microscopic Stat Lab 12/07/24 13:50 Completed VBG [Venous Blood Gas] Stat RT 12/07/24 13:37 Completed Medical Decision Narrative: Darryl Walker is a 54y male with a history of schizoaffective disorder, hyperlipidemia, and hypertension who presents to the emergency department for complaints of left-sided abdominal pain that radiates to his left flank. Patient states that he woke up with this pain at 1:00 this morning and has had associated 2 episodes of nonbilious nonbloody vomiting. He has also had 3 episodes of diarrhea. He does report there is some blood in his diarrhea but states that he also has hemorrhoids and this is not unusual for him. He denies any hematuria or dysuria but is concerned he may have a kidney stone. He has never had a kidney stone before. He denies any chest pain or shortness of breath. He denies any fever. On arrival, patient is hypertensive and mildly tachycardic but afebrile and breathing comfortably on room air. Physical exam, stated above, revealed an uncomfortable but nontoxic-appearing male in no acute respiratory distress. He has tenderness to palpation without peritonitis in the left lower quadrant as well as left-sided CVA tenderness. Cardiopulmonary exam is unremarkable. Differential diagnosis includes, but is not limited to: Ureterolithiasis, hydronephrosis, pyelonephritis/UTI, diverticulitis, acute pancreatitis, among others. Patient's workup in the emergency department included: CT abdomen pelvis with IV contrast, CBC, CMP, UA, lipase. Patient symptoms were treated with 1 L lactated ringer, 4 mg IV morphine and 4 mg IV Zofran. At this time, patient's radiology interpretation of his CT scan is pending. His urine dipstick is pending as well. On my interpretation of patient's CT abdomen pelvis with IV contrast, there appears to be a kidney stone at the distal left ureter at the UVJ. Patient's workup otherwise shows no leukocytosis, mild DORA with creatinine of 1.40 and BUN of 16. Liver enzymes unremarkable. Urine micro with no red blood cells, no white blood cells and trace bacteria. Again, patient's dipstick is pending at this time. Patient's care was handed off to the oncoming physician, Dr. Paredes, pending completion of his workup/radiology interpretation of his CT imaging. <Rossy Paredes, DO - Last Filed: 12/07/24 22:42> Vital Signs: 12/07/24 13:19 12/07/24 14:52 12/07/24 17:06 Temperature 98.2 F Temperature Source Oral Pulse Rate 89 98 H Pulse Rate [Right] 101 H Respiratory Rate 18 Blood Pressure 156/90 H 136/82 Blood Pressure [Right Arm] 156/99 H Blood Pressure Mean [Right Arm] 118 02 Sat by Pulse Oximetry 97 100 98 Oxygen Delivery Method Room Air Room Air 12/07/24 17:26 Temperature 98.2 F Temperature Source Pulse Rate 94 H Pulse Rate [Right] Respiratory Rate 15 Blood Pressure 143/92 H Blood Pressure [Right Arm] Blood Pressure Mean [Right Arm] 02 Sat by Pulse Oximetry Oxygen Delivery Method Room Air Lab Data Lab Results 12/07/24 13:37: VBG pH 7.40, VBG pCO2 37.0, VBG pO2 46.0 H, VBG HCO3 22.1 L, VBG Total CO2 23.3, VBG O2 Saturation 82.1 H, VBG Base Excess -2.7 L, VBG Lactic Acid 1.9 12/07/24 13:49: WBC 10.2, RBC 4.59 L, Hgb 13.9 L, Hct 41.6 L, MCV 90.6, MCH 30.3, MCHC 33.4, RDW 12.8, Plt Count 231, MPV 8.6, Neut % (Auto) 83.8 H, Lymph % (Auto) 12.6, [place] % (Auto) 3.1, Eos % (Auto) 0.0 L, Baso % (Auto) 0.2, Neut # (Auto) 8.6 H, Lymph # (Auto) 1.3, [place] # (Auto) 0.3, Eos # (Auto) 0.0, Baso # (Auto) 0.0, Sodium 139, Potassium 3.9, Chloride 105, Carbon Dioxide 25, Anion Gap 12.9, BUN 16, Creatinine 1.40 H, Estimated Creat Clear 77, Estimated GFR 53 L, Est GFR ( Amer) 64, Glucose 125 H, Calcium 9.6, Total Bilirubin 0.7, AST 38, ALT 53, Alkaline Phosphatase 126, Total Protein 7.8, Albumin 4.8, Globulin 3.0, Albumin/Globulin Ratio 1.6, Lipase 70 12/07/24 13:50: Urine Color Yellow, Urine Appearance Clear, Urine pH 5.5, Ur Specific [place] >= 1.030, Urine Protein Negative, Urine Glucose (UA) Negative, Urine Ketones Negative, Urine Blood Trace A, Urine Nitrate Negative, Urine Bilirubin Negative, Urine Urobilinogen 0.2, Ur Leukocyte Esterase Negative, Urine RBC None, Urine WBC None, Ur Squamous Epith Cells Occasional, Urine Bacteria Trace Orders (Tests/Meds): ED MEDICATIONS Discontinued Medications Generic Name Dose Route Start Last Admin Trade Name Aldoq PRN Reason Stop Dose Admin Lactated Ringer's 1,000 mls @ 999 mls/hr 12/07/24 13:37 12/07/24 14:06 Lactated Ringer's 1000 Ml Bag IV 12/07/24 14:37 999 mls/hr .Q1H1M ONE Administration Iopamidol 75 ml 12/07/24 14:19 12/07/24 14:20 Iopamidol-370 (76%);100ml Bottle IV 12/07/24 14:20 75 ml ONCE ONE Administration Morphine Sulfate 4 mg 12/07/24 13:37 12/07/24 14:07 Morphine 4mg/Ml Syringe IV 12/07/24 13:38 4 mg ONCE ONE Administration Ondansetron HCl 4 mg 12/07/24 13:37 12/07/24 14:07 Ondansetron 4mg/2ml Vial IV 12/07/24 13:38 4 mg ONCE ONE Administration Sodium Chloride 10 ml 12/07/24 14:19 12/07/24 14:20 Sodium Chloride 0.9% 10ml Syr (Rad Only) IV 12/07/24 14:20 10 ml ONCE ONE Administration ORDERS Category Date Time Status CT abdomen pelvis w con Stat Cat Scan 12/07/24 13:37 Completed CBC w/Auto Diff [Complete Blood Count Auto Diff] Stat Lab 12/07/24 13:49 Completed CMP [Comprehensive Metabolic Panel] Stat Lab 12/07/24 13:49 Completed Lipase Stat Lab 12/07/24 13:49 Completed Urinalysis and Microscopic Stat Lab 12/07/24 13:50 Completed VBG [Venous Blood Gas] Stat RT 12/07/24 13:37 Completed Medical Decision Narrative: Darryl Walker is a 54y male with a history of schizoaffective disorder, hyperlipidemia, and hypertension who presents to the emergency department for complaints of left-sided abdominal pain that radiates to his left flank. Patient states that he woke up with this pain at 1:00 this morning and has had associated 2 episodes of nonbilious nonbloody vomiting. He has also had 3 episodes of diarrhea. He does report there is some blood in his diarrhea but states that he also has hemorrhoids and this is not unusual for him. He denies any hematuria or dysuria but is concerned he may have a kidney stone. He has never had a kidney stone before. He denies any chest pain or shortness of breath. He denies any fever. On arrival, patient is hypertensive and mildly tachycardic but afebrile and breathing comfortably on room air. Physical exam, stated above, revealed an uncomfortable but nontoxic-appearing male in no acute respiratory distress. He has tenderness to palpation without peritonitis in the left lower quadrant as well as left-sided CVA tenderness. Cardiopulmonary exam is unremarkable. Differential diagnosis includes, but is not limited to: Ureterolithiasis, hydronephrosis, pyelonephritis/UTI, diverticulitis, acute pancreatitis, among others. Patient's workup in the emergency department included: CT abdomen pelvis with IV contrast, CBC, CMP, UA, lipase. Patient symptoms were treated with 1 L lactated ringer, 4 mg IV morphine and 4 mg IV Zofran. At this time, patient's radiology interpretation of his CT scan is pending. His urine dipstick is pending as well. On my interpretation of patient's CT abdomen pelvis with IV contrast, there appears to be a kidney stone at the distal left ureter at the UVJ. Patient's workup otherwise shows no leukocytosis, mild DORA with creatinine of 1.40 and BUN of 16. Liver enzymes unremarkable. Urine micro with no red blood cells, no white blood cells and trace bacteria. Again, patient's dipstick is pending at this time. Patient's care was handed off to the oncoming physician, Dr. Paredes, pending completion of his workup/radiology interpretation of his CT imaging. Reggie, DO: I assumed care of the patient at 1500 at time of departure of the previous provider. On my assessment, the patient states that he has feeling okay. Vitals reassuring on cardiac telemetry. CBC reassuring with no significant leukocytosis. Chemistry demonstrates very mild DORA. Urinalysis is difficult to definitively make conclusions on given known colovesicular fistula, but it is concerning for infection. Given this, will elect to treat with fluoroquinolone and Flagyl. At this time, I feel the patient is appropriate for discharge with close follow-up with his colorectal team and primary care provider. Strict return precautions were given. Critical Care <Juan R Emery MD - Last Filed: 12/07/24 16:02> Critical Care Time Critical Care Time: No
[2024-12-07 13:55] LABS: Basophils % 0.2 % (0.1-2.0); Hematocrit 41.6 % (42.0-52.0); Hemoglobin 13.9 g/dL (14.1-18.0); Lymphocytes # 1.3 K/mm3 (0.7-4.5); Lymphocytes % 12.6 % (10-50); Mean Corpuscular HGB Conc 33.4 g/dL (31.8-35.4); Mean Corpuscular Hemoglobin 30.3 pg (27.0-31.2); Mean Corpuscular Volume 90.6 fl (80-94); Mean Platelet Volume 8.6 fl (7.4-10.4); Monocytes # 0.3 K/mm3 (0.1-1.0); Monocytes % 3.1 % (1.7-9.3); Neutrophils # 8.6 K/mm3 (1.8-7.8); Neutrophils % 83.8 % (37.0-80.0); Platelet Count 231 K/mm3 (142-424); Red Blood Count 4.59 M/mm3 (4.60-6.20); Red Cell Distribution Width 12.8 % (11.5-17.5); White Blood Count 10.2 K/mm3 (4.8-10.8)
[2024-12-07 13:56] LABS: Microscopic, Urine URINE MICROSCOPIC (MICROSCOPIC)
[2024-12-07 13:59] LABS: Albumin Level 4.8 g/dl (3.5-5.0); Chloride 105 mmol/L (98-107)
[2024-12-07 13:59] LABS: Lactate Venous 1.9 mmol/L (0.4-2.0); VBG Base Excess -2.7 mmol/L (-2.4-2.3); VBG HCO3 22.1 mmol/L (23-30); VBG Oxygen Saturation 82.1 % (50-70); VBG Total CO2 23.3 mmol/L (23-27)
[2024-12-07 14:00] LABS: Potassium 3.9 mmoL/L (3.5-5.1); Sodium 139 mmol/L (136-145)
[2024-12-07 14:02] LABS: Appearance,Urine Clear (Clear); Bilirubin,Urine Negative (Negative); Blood, Urine Trace (Negative); Color,Urine Yellow (Yellow); Glucose,Urine (UA) Negative (Negative); Ketones,Urine Negative (Negative); Leukocyte Esterase,Urine Negative (Negative); Nitrate,Urine Negative (Negative); PH,Urine 5.5 (5.0-8.5); Protein,Urine Negative (Negative); Specific Gravity, Urine >= 1.030 (1.005-1.030); Urobilinogen,Urine 0.2 EU/dl (0.2)
[2024-12-07 14:02] LABS: Alanine Aminotransferase 53 U/L (12-78); Alkaline Phosphatase 126 U/L (38-126); Anion Gap 12.9 mEq/L (5-15); Aspartate Amino Transferase 38 U/L (17-59); Bilirubin,Total 0.7 mg/dl (0.2-1.3); Blood Urea Nitrogen 16 mg/dl (9-20); Carbon Dioxide 25 mmol/L (22.0-30.0); Creatinine Clearance Estimated 77 mL/min (50-200); Estimated Glomerular Filt Rate 53 ml/min (>60); GFR (African American) 64 ML/MIN (>60)
[2024-12-07 14:03] LABS: Albumin/Globulin Ratio 1.6 (1.1-1.8); Calcium 9.6 mg/dl (8.4-10.2); Glucose 125 mg/dl (74-100); Lipase 70 U/L (23-300); Total Protein,Serum 7.8 g/dl (6.3-8.2)
[2024-12-07] MEDS: LACTATED RINGERS 1000ML 1,000 ML 999 ML IV (14:06)
[2024-12-07 14:07] LABS: Bacteria,Urine Trace /lpf; Squamous Epithelial Cell,Urine Occasional #/hpf (0-5)
[2024-12-07] MEDS: ONDANSETRON 4MG/2ML VIAL 4 MG IV (14:07)
[2024-12-07] MEDS: MORPHINE 4MG/ML SYRINGE 4 MG IV (14:07)
[2024-12-07] MEDS: SODIUM CHLORIDE 0.9% 10ML SYR (RAD ONLY) 10 ML IV (14:20)
[2024-12-07] MEDS: IOPAMIDOL-370 (76%);100ML BOTTLE 75 ML IV (14:20)
[2024-12-07 14:52] VITALS: BP 156/90; PULSE 89; O2SAT 100
[2024-12-07 17:06] VITALS: BP 136/82; PULSE 98; O2SAT 98
[2024-12-07 17:26] VITALS: BP 143/92; PULSE 94; RESP 15; TEMP 36.8; O2SAT 98
== END 2024-12-07 17:26 | disposition home or self-care (01) ==
PROVIDERS: Student in an Organized Health Care Education/Training Program; Emergency Provider Emergency Medicine; PCP Nurse Practitioner Family
DX: N20.1 Calculus of ureter (principal); N17.9 Acute kidney failure, unspecified; R10.32 Left lower quadrant pain; R35.0 Frequency of micturition; R11.10 Vomiting, unspecified; R19.7 Diarrhea, unspecified
CPT/HCPCS: 74177; 80053; 81001; 82803; 83690; 85025; 96361; 96374; 96375; 99285; J2270; J2405; J7120; Q9967